=== PATIENT | male | born 1970 | race Caucasian/White ===

== ENCOUNTER 2016-09-06 00:46 | Emergency (ER) | payer BC, OTHER ==
[2016-09-06 02:55] LABS: ANION GAP 10 MEQ/L (8-16); BLOOD UREA NITROGEN 12 MG/DL (7-18); CALCIUM LEVEL 9.4 MG/DL (8.5-10.1); CARBON DIOXIDE LEVEL 28 MEQ/L (21-32); CHLORIDE LEVEL 104 MEQ/L (98-107); CREATININE FOR GFR 1.14 MG/DL (0.70-1.30); GLOMERULAR FILTRATION RATE > 60.0 (>60); GLUCOSE, FASTING 138 MG/DL (70-105); POTASSIUM SERUM 3.2 MEQ/L (3.5-5.1); SODIUM LEVEL 142 MEQ/L (136-145)
[2016-09-06] MEDS ORDERED: POTASSIUM CHLORIDE 10 MEQ SR TABLET As Ordered ONE (03:17)
--- NOTE | 2016-09-06 05:35 | EDDOCDS ---
Nurse's Notes [facility] Name: lOayinka Falcon Age: 45 yrs Sex: Male : 1970 Arrival Date: 09/06/2016 Time: 00:46 Bed 1 Private MD: Diagnosis: Essential (primary) hypertension;Hypokalemia Presentation: 09/06 00:58 Presenting complaint: Patient states: Pt reports he checked his blood pressure at home lf1 at it was 200/100 and he was diaphoretic. Pt denies chest pain. States he has had a similar episode in the past due to low potassium. Adult Sepsis Screening: The patient does not have new or worsening altered mentation. Patient's respiratory rate is less than 22. Systolic blood pressure is greater than 100. Patient has a qSOFA score of 0- Negative Sepsis Screen. Suicide/Homicide risk assessment- the patient denies having any suicidal and/or homicidal ideations and does not present with any other emotional, behavioral or mental health complaints. 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 Transition of care: patient was not received from another setting of care. 00:58 Acuity: CARROLL Level 3 lf1 00:58 Method Of Arrival: Walkin/Carried/Asstd lf1 Triage Assessment: 01:04 General: Appears comfortable, Behavior is cooperative. Pain: Denies pain. HIV screening lf1 NA for this visit Offered previously. Neurological: Level of Consciousness is awake, alert, Oriented to person, place, time. EENT: No deficits noted. Cardiovascular: Chest pain is denied. Respiratory: Respiratory effort is even, unlabored. GI: Abdomen is obese, Denies nausea, vomiting. : No deficits noted. Derm: No deficits noted. Injury Description: No known injury. Historical: - Allergies: SHELLFISH; - Home Meds: 1. allopurinol 100 mg Oral tab 2 tabs once daily 2. amlodipine 10 mg oral tab 3. aspirin 81 mg Oral TbEC 4. atorvastatin 20 mg oral tab 0.5 tab 5. Bystolic 10 mg oral tab 1 tab once daily 6. levocetirizine 5 mg oral tab 1 tab once daily 7. triamterene-hydrochlorothiazid 37.5-25 mg Oral tab 1 tab once daily 8. Vitamin D Oral 1000 unit daily 9. levothyroxine 50 mcg Oral cap 1 cap once daily 10. multivitamin Oral cap - PMHx: Gout; Hiatal Hernia; High Cholesterol; Hypertension; Hypothyroidism; - PSHx: Adenoidectomy; Knee surgery- Left; - Social history: Smoking status: Patient states was never smoker of tobacco. No barriers to communication noted, The patient speaks fluent Azerbaijani, Speaks appropriately for age, Preferred Language: Azerbaijani. - Family history: No immediate family members are acutely ill. - : The pt / caregiver states he / she is not on anticoagulants. Home medication list is obtained from the patient. - Exposure Risk Screening:: None identified. Screenin:06 Screening information is obtained from the patient. Fall risk: No risks identified. lf1 Assistance ADL's: requires no assistance with activities of daily living. Abuse/DV Screen: The patient / caregiver reports he/she is: not in a situation that causes fear, pain or injury. Nutritional screening: No deficits noted. Advance Directives: Currently, there is no health care proxy. There is no active DNR order. There is no living will. home support is adequate. Assessment: 01:41 General: Appears in no apparent distress, comfortable, Behavior is appropriate for age, nn1 cooperative, Patient reports he is anxious. Patient states he first took pulse at 2300 after suddenly becoming diaphoretic, reports his normal pulse is usually in the 60s. Patient reports pulse was in the 90s and BP was 200/100. Patient reporting dry mouth.. Pain: Denies pain. Neurological: Level of Consciousness is awake, alert, Oriented to person, place, time. Cardiovascular: Capillary refill < 3 seconds Heart tones S1 S2 present Rhythm is sinus rhythm No ectopy. Chest pain is denied. Respiratory: Airway is patent Respiratory effort is even, unlabored, Respiratory pattern is regular, symmetrical, Breath sounds are clear bilaterally. Denies shortness of breath. GI: Abdomen is non- distended Bowel sounds present X 4 quads. Derm: Skin is pink, warm & dry. Not diaphoretic at this time. 02:25 General: Appears in no apparent distress, Behavior is anxious, Patient anxious as to nn1 why blood pressure and pulse increased, therefore cardiac enzymes taken. . 03:23 General: Appears in no apparent distress, comfortable, Behavior is anxious, appropriate nn1 for age, cooperative. Pain: Denies pain. Neurological: Level of Consciousness is awake, alert, Oriented to person, place, time. Respiratory: Airway is patent Respiratory effort is even, unlabored, Respiratory pattern is regular, symmetrical. Derm: Skin is pink, warm & dry. 05:10 Reassessment: Patient appears in no apparent distress at this time. No change in nn1 condition at this time, patient awaiting disposition.. 05:32 General: Appears in no apparent distress, comfortable, Behavior is appropriate for age, nn1 cooperative. Pain: Denies pain. Neurological: Level of Consciousness is awake, alert, Oriented to person, place, time. Respiratory: Airway is patent Respiratory effort is even, unlabored, Respiratory pattern is regular, symmetrical. Derm: Skin is pink, warm & dry. Vital Signs: 00:57 BP 198 / 88 (man/); Pulse 103; Resp 20; Temp 99.1(TE); Pulse Ox 97% on R/A; Weight dionne 158.3 kg; Height 6 ft. 0 in. (182.88 cm) (R); Pain 0/10; 02:16 BP 158 / 86 (man/); Pulse 94; Resp 20; Temp 98.0(O); Pulse Ox 98% on R/A; dionne 03:15 BP 141 / 88 (auto/); nn1 03:15 Pulse 73 MON; Pulse Ox 95% ; nn1 03:15 Resp 18; nn1 05:31 BP 159 / 85; Pulse 70; Resp 18; Temp 98.1(TE); Pulse Ox 96% on R/A; Pain 0/10; nn1 00:57 Body Mass Index 47.33 (158.30 kg, 182.88 cm) dionne Vitals: 01:04 Log In Time: September 06, 2016 at 00:48. lf1 ED Course: 00:47 Patient visited by Temi Pablo, Alexander. hs2 00:47 Patient moved to Waiting hs2 00:50 Patient moved to Triage 3 lf1 00:58 Patient visited by Riya Pedersen PCA. dionne 01:00 Triage Initiated lf1 01:05 EKG done. (by ED staff). Reviewed by Ramiro Levine DO. dionne 01:06 Patient moved to 1 dionne 01:12 Patient visited by Riya Pedersen PCA. dionne 01:12 Pt greeted and oriented to ED. Patient advised of names of staff involved in care, dionne location of call brand, wait times and NPO status. Accompanied by Significant Other, Patient has correct armband on for positive identification. Placed in gown. Bed in low position. Call light in reach. Side rails up X2. event sales representative on. Pulse ox on. NIBP on. 01:35 Ramiro Levine DO is Attending Physician. cs11 01:35 Patient visited by Ramiro Levine DO. cs11 02:05 Yonas Traore MD is Referral Physician. cs11 02:16 Patient visited by Riya Pedersen PCA. dionne 02:26 Cardiac Marker Panel Sent. nn1 02:26 MED Profile Sent. nn1 03:12 [facility] Payment Agreement was scanned into [employer] and attached to record. hs2 03:23 Patient visited by Mike Patel RN. nn1 04:26 Patient visited by Mike Patel RN. nn1 05:10 Patient visited by Mike Patel RN. nn1 05:33 The patient / caregiver is instructed regarding the plan of care and ED course. nn1 05:33 No IV's were initiated during this patient's visit. No procedures done that require nn1 assistance. Administered Medications: 03:23 Drug: Potassium Chloride 20 mEq [potassium chloride ER 10 mEq tablet,extended release nn1 (2 tabs)] Route: PO; Order Results: Lab Order: MED Profile; SPEC'M 09/06/16 02:24 Test: GLUCOSE, FASTING; Value: 138; Range: 70-105; Abnormal: Above high normal; Units: MG/DL; Status: F Test: BLOOD UREA NITROGEN; Value: 12; Range: 7-18; Units: MG/DL; Status: F Test: CREATININE FOR GFR; Value: 1.14; Range: 0.70-1.30; Units: MG/DL; Status: F Test: GLOMERULAR FILTRATION RATE; Value: > 60.0; Range: >60; Status: F Test: SODIUM LEVEL; Value: 142; Range: 136-145; Units: MEQ/L; Status: F Test: POTASSIUM SERUM; Value: 3.2; Range: 3.5-5.1; Abnormal: Below low normal; Units: MEQ/L; Status: F Test: CHLORIDE LEVEL; Value: 104; Range: 98-107; Units: MEQ/L; Status: F Test: CARBON DIOXIDE LEVEL; Value: 28; Range: 21-32; Units: MEQ/L; Status: F Test: ANION GAP; Value: 10; Range: 8-16; Units: MEQ/L; Status: F Test: CALCIUM LEVEL; Value: 9.4; Range: 8.5-10.1; Units: MG/DL; Status: F Test Note: ; Units are mL/min/1.73 m2 Chronic Kidney Disease Staging per NKF: Stage I & II GFR >=60 Normal to Mildly Decreased Stage III GFR 30-59 Moderately Decreased Stage IV GFR 15-29 Severely Decreased Stage V GFR <15 Very Little GFR Left ESRD GFR <15 on CALIBRATION SPECIALIST Lab Order: Cardiac Marker Panel; SPEC'M 09/06/16 02:24 Test: CPK CREATINE PHOSPHOKINASE; Value: 247; Range: 39-308; Units: U/L; Status: F Test: CK-MB VALUE MASS; Value: 1.9; Range: 0.0-3.6; Units: NG/ML; Status: F Test: MB/CK RELATIVE INDEX; Value: 0.76; Range: < OR =4; Status: F Test: TROPONIN I; Value: < 0.02; Range: < 0.10; Units: NG/ML; Status: F Test Note: ; DIAGNOSIS CRITERIA MMB ng/ml Relative Index (RI) NON-AMI < or = 5 N/A LESLIE ZONE > 5 < or = 4 AMI > 5 > 4 Outcome: 02:06 Discharge ordered by Provider. cs11 05:22 Discharge ordered by Provider. 11 05:32 Discharge Assessment: Patient awake, alert and oriented x 3. No cognitive and/or nn1 functional deficits noted. Patient verbalized understanding of disposition instructions. patient administered narcotics - no. The following High Risk Discharge criteria are identified: None. Discharged to home ambulatory, with significant other. Condition: stable. No special radiology studies were completed. Property :Personal belongings accompany Pt. 05:33 Patient left the ED. nn1 Signatures: Bing Singh,RN RN lf1 Riya Pedersen, CRISTIANE CABLE TELEVISION TECHNICIAN Ramiro Guillauem DO DO cs11 Mike PatelRN RN nn1 Temi Pablo, Reg Reg hs2 MTDD
--- NOTE | 2016-09-06 05:35 | EDDOCDS ---
Physician Documentation [facility] Name: Olaiynka Falcon Age: 45 yrs Sex: Male : 1970 Arrival Date: 09/06/2016 Time: 00:46 Bed 1 Private MD: Disposition: 09/06/16 05:22 Discharged to Home/Self Care. Impression: Essential (primary) hypertension, Hypokalemia. - Condition is Stable. - Medication Reconciliation, Local Pharmacy Hours form. - Follow up: Private Physician; When: Call to arrange an appointment; Reason: Recheck today's complaints. - Problem is an ongoing problem. - Symptoms have improved. Historical: - Allergies: SHELLFISH; - Home Meds: 1. allopurinol 100 mg Oral tab 2 tabs once daily 2. amlodipine 10 mg oral tab 3. aspirin 81 mg Oral TbEC 4. atorvastatin 20 mg oral tab 0.5 tab 5. Bystolic 10 mg oral tab 1 tab once daily 6. levocetirizine 5 mg oral tab 1 tab once daily 7. triamterene-hydrochlorothiazid 37.5-25 mg Oral tab 1 tab once daily 8. Vitamin D Oral 1000 unit daily 9. levothyroxine 50 mcg Oral cap 1 cap once daily 10. multivitamin Oral cap - PMHx: Gout; Hiatal Hernia; High Cholesterol; Hypertension; Hypothyroidism; - PSHx: Adenoidectomy; Knee surgery- Left; - Social history: Smoking status: Patient states was never smoker of tobacco. No barriers to communication noted, The patient speaks fluent Malaysian, Speaks appropriately for age, Preferred Language: Malaysian. - Family history: No immediate family members are acutely ill. - : The pt / caregiver states he / she is not on anticoagulants. Home medication list is obtained from the patient. - Exposure Risk Screening:: None identified. Vital Signs: 09/06 00:57 BP 198 / 88 (man/); Pulse 103; Resp 20; Temp 99.1(TE); Pulse Ox 97% on R/A; Weight dionne 158.3 kg / 348.99 lbs; Height 6 ft. 0 in. (182.88 cm) (R); Pain 0/10; 02:16 BP 158 / 86 (man/); Pulse 94; Resp 20; Temp 98.0(O); Pulse Ox 98% on R/A; dionne 03:15 BP 141 / 88 (auto/); nn1 03:15 Pulse 73 MON; Pulse Ox 95% ; nn1 03:15 Resp 18; nn1 05:31 BP 159 / 85; Pulse 70; Resp 18; Temp 98.1(TE); Pulse Ox 96% on R/A; Pain 0/10; nn1 00:57 Body Mass Index 47.33 (158.30 kg, 182.88 cm) dionne MDM: 01:02 ECG WITH READING ER PHYS+CARDIAG ordered. EDMS 02:18 MED Profile Ordered. EDMS 02:18 Cardiac Marker Panel Ordered. EDMS 02:27 Financial registration complete. pm4 03:11 MED Profile Reviewed. cs11 03:11 Cardiac Marker Panel Reviewed. cs11 03:11 Potassium Chloride Extended Release Tablet 20 mEq PO once ordered. cs11 03:12 [facility] Payment Agreement was scanned into [employer] and attached to record. hs2 Administered Medications: 03:23 Drug: Potassium Chloride 20 mEq [potassium chloride ER 10 mEq tablet,extended release nn1 (2 tabs)] Route: PO; Signatures: Dispatcher [employer] EDGA Bing Singh,RN RN lf1 Ramiro Levine, DO DO cs11 Mike PatelRN RN nn1 Temi Pablo, Reg Reg hs2 Kentrell Doan, Reg Reg pm4 The chart was reviewed and I authenticate all verbal orders and agree with the evaluation and treatment provided.Attachments: 03:12 [facility] Payment Agreement hs2 MTDD
--- NOTE | 2016-09-07 17:37 | ECGEPIP ---
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
--- NOTE | 2016-09-08 06:34 | EDDOCDS ---
Physician Documentation [facility] Name: Olayinka Falcon Age: 45 yrs Sex: Male : 1970 Arrival Date: 09/06/2016 Time: 00:46 Bed 1 Private MD: Disposition: 09/06/16 05:22 Discharged to Home/Self Care. Impression: Essential (primary) hypertension, Hypokalemia. - Condition is Stable. - Medication Reconciliation, Local Pharmacy Hours form. - Follow up: Private Physician; When: Call to arrange an appointment; Reason: Recheck today's complaints. - Problem is an ongoing problem. - Symptoms have improved. Historical: - Allergies: SHELLFISH; - Home Meds: 1. allopurinol 100 mg Oral tab 2 tabs once daily 2. amlodipine 10 mg oral tab 3. aspirin 81 mg Oral TbEC 4. atorvastatin 20 mg oral tab 0.5 tab 5. Bystolic 10 mg oral tab 1 tab once daily 6. levocetirizine 5 mg oral tab 1 tab once daily 7. triamterene-hydrochlorothiazid 37.5-25 mg Oral tab 1 tab once daily 8. Vitamin D Oral 1000 unit daily 9. levothyroxine 50 mcg Oral cap 1 cap once daily 10. multivitamin Oral cap - PMHx: Gout; Hiatal Hernia; High Cholesterol; Hypertension; Hypothyroidism; - PSHx: Adenoidectomy; Knee surgery- Left; - Social history: Smoking status: Patient states was never smoker of tobacco. No barriers to communication noted, The patient speaks fluent Montserratian, Speaks appropriately for age, Preferred Language: Montserratian. - Family history: No immediate family members are acutely ill. - : The pt / caregiver states he / she is not on anticoagulants. Home medication list is obtained from the patient. - Exposure Risk Screening:: None identified. Vital Signs: 09/06 00:57 BP 198 / 88 (man/); Pulse 103; Resp 20; Temp 99.1(TE); Pulse Ox 97% on R/A; Weight dionne 158.3 kg / 348.99 lbs; Height 6 ft. 0 in. (182.88 cm) (R); Pain 0/10; 02:16 BP 158 / 86 (man/); Pulse 94; Resp 20; Temp 98.0(O); Pulse Ox 98% on R/A; dionne 03:15 BP 141 / 88 (auto/); nn1 03:15 Pulse 73 MON; Pulse Ox 95% ; nn1 03:15 Resp 18; nn1 05:31 BP 159 / 85; Pulse 70; Resp 18; Temp 98.1(TE); Pulse Ox 96% on R/A; Pain 0/10; nn1 00:57 Body Mass Index 47.33 (158.30 kg, 182.88 cm) dionne MDM: 01:02 ECG WITH READING ER PHYS+CARDIAG ordered. EDMS 02:18 MED Profile Ordered. EDMS 02:18 Cardiac Marker Panel Ordered. EDMS 02:27 Financial registration complete. pm4 03:11 MED Profile Reviewed. cs11 03:11 Cardiac Marker Panel Reviewed. cs11 03:11 Potassium Chloride Extended Release Tablet 20 mEq PO once ordered. cs11 03:12 [facility] Payment Agreement was scanned into [employer] and attached to record. 2 09/07 12:57 T-Sheet-- Draft Copy was scanned into [employer] and attached to record. gb 12:58 ECG/EKG was scanned into [employer] and attached to record. gb Administered Medications: 09/06 03:23 Drug: Potassium Chloride 20 mEq [potassium chloride ER 10 mEq tablet,extended release nn1 (2 tabs)] Route: PO; Signatures: Dispatcher [employer] EDKS Luciana Arshad, Reg Reg gb Bing Singh,RN RN lf1 Ramiro Levine, DO cs11 Mike PatelRN RN nn1 Temi Pablo, Reg Reg hs2 Kentrell Doan, Reg Reg pm4 The chart was reviewed and I authenticate all verbal orders and agree with the evaluation and treatment provided.Attachments: 03:12 [facility] Payment Agreement hs2 09/07 12:57 T-Sheet-- Draft Copy gb 12:58 ECG/EKG gb Chart Complete MTDD
--- NOTE | 2016-09-08 06:35 | EDDOCDS ---
Physician Documentation [facility] Name: Olayinka Falcon Age: 45 yrs Sex: Male : 1970 Arrival Date: 09/06/2016 Time: 00:46 Bed 1 Private MD: Disposition: 09/06/16 05:22 Discharged to Home/Self Care. Impression: Essential (primary) hypertension, Hypokalemia. - Condition is Stable. - Medication Reconciliation, Local Pharmacy Hours form. - Follow up: Private Physician; When: Call to arrange an appointment; Reason: Recheck today's complaints. - Problem is an ongoing problem. - Symptoms have improved. Historical: - Allergies: SHELLFISH; - Home Meds: 1. allopurinol 100 mg Oral tab 2 tabs once daily 2. amlodipine 10 mg oral tab 3. aspirin 81 mg Oral TbEC 4. atorvastatin 20 mg oral tab 0.5 tab 5. Bystolic 10 mg oral tab 1 tab once daily 6. levocetirizine 5 mg oral tab 1 tab once daily 7. triamterene-hydrochlorothiazid 37.5-25 mg Oral tab 1 tab once daily 8. Vitamin D Oral 1000 unit daily 9. levothyroxine 50 mcg Oral cap 1 cap once daily 10. multivitamin Oral cap - PMHx: Gout; Hiatal Hernia; High Cholesterol; Hypertension; Hypothyroidism; - PSHx: Adenoidectomy; Knee surgery- Left; - Social history: Smoking status: Patient states was never smoker of tobacco. No barriers to communication noted, The patient speaks fluent Barbadian, Speaks appropriately for age, Preferred Language: Barbadian. - Family history: No immediate family members are acutely ill. - : The pt / caregiver states he / she is not on anticoagulants. Home medication list is obtained from the patient. - Exposure Risk Screening:: None identified. Vital Signs: 09/06 00:57 BP 198 / 88 (man/); Pulse 103; Resp 20; Temp 99.1(TE); Pulse Ox 97% on R/A; Weight dionne 158.3 kg / 348.99 lbs; Height 6 ft. 0 in. (182.88 cm) (R); Pain 0/10; 02:16 BP 158 / 86 (man/); Pulse 94; Resp 20; Temp 98.0(O); Pulse Ox 98% on R/A; dionne 03:15 BP 141 / 88 (auto/); nn1 03:15 Pulse 73 MON; Pulse Ox 95% ; nn1 03:15 Resp 18; nn1 05:31 BP 159 / 85; Pulse 70; Resp 18; Temp 98.1(TE); Pulse Ox 96% on R/A; Pain 0/10; nn1 00:57 Body Mass Index 47.33 (158.30 kg, 182.88 cm) dionne MDM: 01:02 ECG WITH READING ER PHYS+CARDIAG ordered. EDMS 02:18 MED Profile Ordered. EDMS 02:18 Cardiac Marker Panel Ordered. EDMS 02:27 Financial registration complete. pm4 03:11 MED Profile Reviewed. cs11 03:11 Cardiac Marker Panel Reviewed. cs11 03:11 Potassium Chloride Extended Release Tablet 20 mEq PO once ordered. cs11 03:12 [facility] Payment Agreement was scanned into [employer] and attached to record. 2 09/07 12:57 T-Sheet-- Draft Copy was scanned into [employer] and attached to record. gb 12:58 ECG/EKG was scanned into [employer] and attached to record. gb Administered Medications: 09/06 03:23 Drug: Potassium Chloride 20 mEq [potassium chloride ER 10 mEq tablet,extended release nn1 (2 tabs)] Route: PO; Signatures: Dispatcher [employer] EDHI Luciana Arshad, Reg Reg gb Bing Singh,RN RN lf1 Ramiro Levine, DO cs11 Mike PatelRN RN nn1 Temi Pablo, Reg Reg hs2 Kentrell Doan, Reg Reg pm4 The chart was reviewed and I authenticate all verbal orders and agree with the evaluation and treatment provided.Attachments: 03:12 [facility] Payment Agreement hs2 09/07 12:57 T-Sheet-- Draft Copy gb 12:58 ECG/EKG gb Chart Complete MTDD
--- NOTE | 2016-09-08 06:35 | EDDOCDS ---
Nurse's Notes [facility] Name: Olayinka Falcon Age: 45 yrs Sex: Male : 1970 Arrival Date: 09/06/2016 Time: 00:46 Bed 1 Private MD: Diagnosis: Essential (primary) hypertension;Hypokalemia Presentation: 09/06 00:58 Presenting complaint: Patient states: Pt reports he checked his blood pressure at home lf1 at it was 200/100 and he was diaphoretic. Pt denies chest pain. States he has had a similar episode in the past due to low potassium. Adult Sepsis Screening: The patient does not have new or worsening altered mentation. Patient's respiratory rate is less than 22. Systolic blood pressure is greater than 100. Patient has a qSOFA score of 0- Negative Sepsis Screen. Suicide/Homicide risk assessment- the patient denies having any suicidal and/or homicidal ideations and does not present with any other emotional, behavioral or mental health complaints. 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 Transition of care: patient was not received from another setting of care. 00:58 Acuity: CARROLL Level 3 lf1 00:58 Method Of Arrival: Walkin/Carried/Asstd lf1 Triage Assessment: 01:04 General: Appears comfortable, Behavior is cooperative. Pain: Denies pain. HIV screening lf1 NA for this visit Offered previously. Neurological: Level of Consciousness is awake, alert, Oriented to person, place, time. EENT: No deficits noted. Cardiovascular: Chest pain is denied. Respiratory: Respiratory effort is even, unlabored. GI: Abdomen is obese, Denies nausea, vomiting. : No deficits noted. Derm: No deficits noted. Injury Description: No known injury. Historical: - Allergies: SHELLFISH; - Home Meds: 1. allopurinol 100 mg Oral tab 2 tabs once daily 2. amlodipine 10 mg oral tab 3. aspirin 81 mg Oral TbEC 4. atorvastatin 20 mg oral tab 0.5 tab 5. Bystolic 10 mg oral tab 1 tab once daily 6. levocetirizine 5 mg oral tab 1 tab once daily 7. triamterene-hydrochlorothiazid 37.5-25 mg Oral tab 1 tab once daily 8. Vitamin D Oral 1000 unit daily 9. levothyroxine 50 mcg Oral cap 1 cap once daily 10. multivitamin Oral cap - PMHx: Gout; Hiatal Hernia; High Cholesterol; Hypertension; Hypothyroidism; - PSHx: Adenoidectomy; Knee surgery- Left; - Social history: Smoking status: Patient states was never smoker of tobacco. No barriers to communication noted, The patient speaks fluent Guyanese, Speaks appropriately for age, Preferred Language: Guyanese. - Family history: No immediate family members are acutely ill. - : The pt / caregiver states he / she is not on anticoagulants. Home medication list is obtained from the patient. - Exposure Risk Screening:: None identified. Screenin:06 Screening information is obtained from the patient. Fall risk: No risks identified. lf1 Assistance ADL's: requires no assistance with activities of daily living. Abuse/DV Screen: The patient / caregiver reports he/she is: not in a situation that causes fear, pain or injury. Nutritional screening: No deficits noted. Advance Directives: Currently, there is no health care proxy. There is no active DNR order. There is no living will. home support is adequate. Assessment: 01:41 General: Appears in no apparent distress, comfortable, Behavior is appropriate for age, nn1 cooperative, Patient reports he is anxious. Patient states he first took pulse at 2300 after suddenly becoming diaphoretic, reports his normal pulse is usually in the 60s. Patient reports pulse was in the 90s and BP was 200/100. Patient reporting dry mouth.. Pain: Denies pain. Neurological: Level of Consciousness is awake, alert, Oriented to person, place, time. Cardiovascular: Capillary refill < 3 seconds Heart tones S1 S2 present Rhythm is sinus rhythm No ectopy. Chest pain is denied. Respiratory: Airway is patent Respiratory effort is even, unlabored, Respiratory pattern is regular, symmetrical, Breath sounds are clear bilaterally. Denies shortness of breath. GI: Abdomen is non- distended Bowel sounds present X 4 quads. Derm: Skin is pink, warm & dry. Not diaphoretic at this time. 02:25 General: Appears in no apparent distress, Behavior is anxious, Patient anxious as to nn1 why blood pressure and pulse increased, therefore cardiac enzymes taken. . 03:23 General: Appears in no apparent distress, comfortable, Behavior is anxious, appropriate nn1 for age, cooperative. Pain: Denies pain. Neurological: Level of Consciousness is awake, alert, Oriented to person, place, time. Respiratory: Airway is patent Respiratory effort is even, unlabored, Respiratory pattern is regular, symmetrical. Derm: Skin is pink, warm & dry. 05:10 Reassessment: Patient appears in no apparent distress at this time. No change in nn1 condition at this time, patient awaiting disposition.. 05:32 General: Appears in no apparent distress, comfortable, Behavior is appropriate for age, nn1 cooperative. Pain: Denies pain. Neurological: Level of Consciousness is awake, alert, Oriented to person, place, time. Respiratory: Airway is patent Respiratory effort is even, unlabored, Respiratory pattern is regular, symmetrical. Derm: Skin is pink, warm & dry. Vital Signs: 00:57 BP 198 / 88 (man/); Pulse 103; Resp 20; Temp 99.1(TE); Pulse Ox 97% on R/A; Weight dionne 158.3 kg; Height 6 ft. 0 in. (182.88 cm) (R); Pain 0/10; 02:16 BP 158 / 86 (man/); Pulse 94; Resp 20; Temp 98.0(O); Pulse Ox 98% on R/A; dionne 03:15 BP 141 / 88 (auto/); nn1 03:15 Pulse 73 MON; Pulse Ox 95% ; nn1 03:15 Resp 18; nn1 05:31 BP 159 / 85; Pulse 70; Resp 18; Temp 98.1(TE); Pulse Ox 96% on R/A; Pain 0/10; nn1 00:57 Body Mass Index 47.33 (158.30 kg, 182.88 cm) dionne Vitals: 01:04 Log In Time: September 06, 2016 at 00:48. lf1 ED Course: 00:47 Patient visited by Temi Pablo, Alexander. hs2 00:47 Patient moved to Waiting hs2 00:50 Patient moved to Triage 3 lf1 00:58 Patient visited by Riya ePdersen PCA. dionne 01:00 Triage Initiated lf1 01:05 EKG done. (by ED staff). Reviewed by Ramiro Michel DO. dionne 01:06 Patient moved to 1 dionne 01:12 Patient visited by Riya Pedersen PCA. dionne 01:12 Pt greeted and oriented to ED. Patient advised of names of staff involved in care, dionne location of call brand, wait times and NPO status. Accompanied by Significant Other, Patient has correct armband on for positive identification. Placed in gown. Bed in low position. Call light in reach. Side rails up X2. graduate assistant on. Pulse ox on. NIBP on. 01:35 Ramiro Michel DO is Attending Physician. cs11 01:35 Patient visited by Ramiro Michel DO. cs11 02:05 Yonas Traore MD is Referral Physician. cs11 02:16 Patient visited by Riya Pedersen PCA. dionne 02:26 Cardiac Marker Panel Sent. nn1 02:26 MED Profile Sent. nn1 03:12 [facility] Payment Agreement was scanned into [email or web address] and attached to record. hs2 03:23 Patient visited by Mike Patel RN. nn1 04:26 Patient visited by Mike Patel,CURTIS. nn1 05:10 Patient visited by Mike Patel,CURTIS. nn1 05:33 The patient / caregiver is instructed regarding the plan of care and ED course. nn1 05:33 No IV's were initiated during this patient's visit. No procedures done that require nn1 assistance. 16:53 Patient visited by Emilia Lama. mc7 09/07 12:57 T-Sheet-- Draft Copy was scanned into [email or web address] and attached to record. gb 12:58 ECG/EKG was scanned into [email or web address] and attached to record. gb 18:15 EKG-ADULT Returned. EDMS Administered Medications: 09/06 03:23 Drug: Potassium Chloride 20 mEq [potassium chloride ER 10 mEq tablet,extended release nn1 (2 tabs)] Route: PO; Order Results: Lab Order: MED Profile; SPEC'M 09/06/16 02:24 Test: GLUCOSE, FASTING; Value: 138; Range: 70-105; Abnormal: Above high normal; Units: MG/DL; Status: F Test: BLOOD UREA NITROGEN; Value: 12; Range: 7-18; Units: MG/DL; Status: F Test: CREATININE FOR GFR; Value: 1.14; Range: 0.70-1.30; Units: MG/DL; Status: F Test: GLOMERULAR FILTRATION RATE; Value: > 60.0; Range: >60; Status: F Test: SODIUM LEVEL; Value: 142; Range: 136-145; Units: MEQ/L; Status: F Test: POTASSIUM SERUM; Value: 3.2; Range: 3.5-5.1; Abnormal: Below low normal; Units: MEQ/L; Status: F Test: CHLORIDE LEVEL; Value: 104; Range: 98-107; Units: MEQ/L; Status: F Test: CARBON DIOXIDE LEVEL; Value: 28; Range: 21-32; Units: MEQ/L; Status: F Test: ANION GAP; Value: 10; Range: 8-16; Units: MEQ/L; Status: F Test: CALCIUM LEVEL; Value: 9.4; Range: 8.5-10.1; Units: MG/DL; Status: F Test Note: ; Units are mL/min/1.73 m2 Chronic Kidney Disease Staging per NKF: Stage I & II GFR >=60 Normal to Mildly Decreased Stage III GFR 30-59 Moderately Decreased Stage IV GFR 15-29 Severely Decreased Stage V GFR <15 Very Little GFR Left ESRD GFR <15 on REEL SLITTER Lab Order: Cardiac Marker Panel; [facility]' 09/06/16 02:24 Test: CPK CREATINE PHOSPHOKINASE; Value: 247; Range: 39-308; Units: U/L; Status: F Test: CK-MB VALUE MASS; Value: 1.9; Range: 0.0-3.6; Units: NG/ML; Status: F Test: MB/CK RELATIVE INDEX; Value: 0.76; Range: < OR =4; Status: F Test: TROPONIN I; Value: < 0.02; Range: < 0.10; Units: NG/ML; Status: F Test Note: ; DIAGNOSIS CRITERIA MMB ng/ml Relative Index (RI) NON-AMI < or = 5 N/A LESLIE ZONE > 5 < or = 4 AMI > 5 > 4 Radiology Order: EKG-ADULT Test: EKG-ADULT REASON FOR EXAMINATION: elevated BP and diaphoresis; Stationary ECG Study; [facility] - ED; ; Test Date: 2016-09-06; Pat Name: OLAYINKA FALCON Department:; Room: -; Gender: M 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 cs11 05:22 Discharge ordered by Provider. cs11 05:32 Discharge Assessment: Patient awake, alert and oriented x 3. No cognitive and/or nn1 functional deficits noted. Patient verbalized understanding of disposition instructions. patient administered narcotics - no. The following High Risk Discharge criteria are identified: None. Discharged to home ambulatory, with significant other. Condition: stable. No special radiology studies were completed. Property :Personal belongings accompany Pt. 05:33 Patient left the ED. nn1 Signatures: Dispatcher [employer] EDMS Luciana Arshad, Reg Reg gb Bing Singh,RN RN 1 Emilia Lama 7 Riya Pedersen, NAME PLATE STAMPER NAME PLATE STAMPER Ramiro Guillaume, DO DO cs11 Mike Patel RN RN nn1 Temi Pablo, Reg Reg hs2 Chart Complete MTDD
== END 2016-09-06 05:33 | disposition home or self-care (01) ==
LOC: M ED 00:46
DX: I10 Essential (primary) hypertension (principal); F41.9 Anxiety disorder, unspecified; M10.9 Gout, unspecified; K44.9 Diaphragmatic hernia without obstruction or gangrene; E78.00 Pure hypercholesterolemia, unspecified; E03.9 Hypothyroidism, unspecified; Z79.82 Long term (current) use of aspirin; Z79.899 Other long term (current) drug therapy; Z91.013 Allergy to seafood

== ENCOUNTER → 2016-09-26 | Outpatient (CLI) | payer BC, OTHER ==
[2016-09-26 20:30] LABS: ANION GAP 10 MEQ/L (8-16); BLOOD UREA NITROGEN 14 MG/DL (7-18); CALCIUM LEVEL 9.6 MG/DL (8.5-10.1); CARBON DIOXIDE LEVEL 29 MEQ/L (21-32); CHLORIDE LEVEL 104 MEQ/L (98-107); CREATININE FOR GFR 1.16 MG/DL (0.70-1.30); GLOMERULAR FILTRATION RATE > 60.0 (>60); GLUCOSE, FASTING 118 MG/DL (70-105); POTASSIUM SERUM 3.7 MEQ/L (3.5-5.1); SODIUM LEVEL 143 MEQ/L (136-145)
== END ==
LOC: M ADAMS 15:43
PROVIDERS: ATTEND Physician Assistant
DX: E87.6 Hypokalemia (principal)

== ENCOUNTER 2017-06-22 13:47 | Emergency (ER) | payer OTHER, BC ==
[~2017-06-22] VITALS: Ht 182.9 cm; Wt 157.7 kg
[2017-06-22 13:47] VITALS: BP 157/80
[2017-06-22] MEDS ORDERED: BYST10TA2 (13:54)
[2017-06-22] MEDS ORDERED: MULT1CHW39 PO (13:54)
[2017-06-22] MEDS ORDERED: ASPI81TA85 PO (13:54)
[2017-06-22] MEDS ORDERED: CITA20TA4 (13:54)
[2017-06-22] MEDS ORDERED: ATOR1TAB21 (13:54)
[2017-06-22] MEDS ORDERED: AMLO10TA2 (13:54)
[2017-06-22] MEDS ORDERED: TRIAMT/HCTZ (13:54)
[2017-06-22] MEDS ORDERED: ALLO100T PO (13:54)
[2017-06-22] MEDS ORDERED: FAMO1TAB11 (13:54)
[2017-06-22] MEDS ORDERED: POTA8CAP4 (13:54)
[2017-06-22] MEDS ORDERED: ZYRT10CA PO (13:54)
[2017-06-22] MEDS ORDERED: LEVO50TA5 (13:54)
--- NOTE | 2017-06-22 14:45 | REP ---
Clinical: Trauma . Technique: AP, lateral, bilateral oblique views of the right elbow. Findings: No acute fracture or dislocation is appreciated. Joint spaces and surrounding soft tissues appear normal. Lateral view demonstrates normal positioning to the anterior and posterior fat pads without evidence for effusion/hemarthrosis. No subcutaneous emphysema or foreign body identified. Impression: Normal right elbow radiographs. Signed by Sebastian Alcanatra MD 06/22/2017 02:36 P
== END 2017-06-22 14:56 | disposition home or self-care (01) ==
LOC: M ED 13:47
DX: S50.01XA Contusion of right elbow, initial encounter (principal); W01.10XA Fall on same level from slipping, tripping and stumbling with subsequent striking against unspecified object, initial encounter; Y92.9 Unspecified place or not applicable; Y93.9 Activity, unspecified; Y99.0 Civilian activity done for income or pay; Z79.82 Long term (current) use of aspirin; Z79.899 Other long term (current) drug therapy; Z91.013 Allergy to seafood

== ENCOUNTER 2017-11-03 14:48 | Emergency (ER) | payer OTHER, BC | END 2017-11-03 15:31 | disposition home or self-care (01) | LOC: M ED 14:48 | DX: S97.82XA Crushing injury of left foot, initial encounter (principal); X58.XXXA Exposure to other specified factors, initial encounter; Y92.59 Other trade areas as the place of occurrence of the external cause; Y99.0 Civilian activity done for income or pay; I10 Essential (primary) hypertension; K21.9 Gastro-esophageal reflux disease without esophagitis; E07.9 Disorder of thyroid, unspecified; Z91.013 Allergy to seafood; Z79.82 Long term (current) use of aspirin; Z79.899 Other long term (current) drug therapy; Z79.890 Hormone replacement therapy | CPT/HCPCS: 73660 ==

== ENCOUNTER → 2018-02-14 | Outpatient (CLI) | payer BC, OTHER | LOC: M ADAMS 16:30 | DX: S50.01XA Contusion of right elbow, initial encounter (principal); X58.XXXA Exposure to other specified factors, initial encounter; Y92.9 Unspecified place or not applicable | CPT/HCPCS: 73080 ==

== ENCOUNTER → 2018-12-27 | Outpatient (CLI) | payer BC, OTHER ==
[~2018-12-27] MED LIST: ALLO100T PO; AMLO10TA5; ASPI81TA85 PO; ATOR1TAB21; BYST10TA2; CITA20TA6; FAMO1TAB11; IBUP-1022 PO; LEVO50TA5; MULT200T7 PO; POTA8CAP4; TRIAMT/HCTZ; ZYRT10CA PO
[2018-12-27 08:46] LABS: ALBUMIN 3.6 GM/DL (3.2-5.2); ALT/SGPT 38 U/L (12-78); BILIRUBIN,DIRECT 0.1 MG/DL (0.0-0.2); BILIRUBIN,TOTAL 0.4 MG/DL (0.2-1.0); GAMMA GLUTAMYLTRANSPEPTIDASE 46 U/L (15-85); IRON (FE) 62 UG/DL (65-175); PERCENT SATURATION 19.6 % (19.7-50.0); TOTAL IRON BINDING CAPACITY 317 UG/DL (250-450); TOTAL PROTEIN 6.8 GM/DL (6.4-8.2)
--- NOTE | 2018-12-27 10:47 | REP ---
RIGHT UPPER QUADRANT ULTRASOUND: Real-time sonographic evaluation of the right upper quadrant performed. Gallbladder demonstrates no evidence of intraluminal sludge or calculi, wall thickening or pericholecystic fluid. There is no intrahepatic or extrahepatic biliary dilatation, common bile duct measuring 5 mm. Liver demonstrates heterogeneous increased echotexture diffusely suggesting diffuse fibrofatty infiltration. No gross liver or pancreatic mass is seen, evaluation is limited due to overlying bowel gas and patient body habitus. Right kidney demonstrates no hydronephrosis with normal size 12 cm in length. IMPRESSION: Diffuse fibrofatty infiltration of the liver without other significant finding. Electronically Signed by Sha Brody MD 12/27/2018 04:29 P
[2018-12-28 11:50] LABS: HEPATITIS B SURFACE ANTIBODY POSITIVE (POSITIVE)
[2018-12-28 12:01] LABS: HEPATITIS B SURFACE ANTIGEN NEGATIVE (NEGATIVE)
[2018-12-31 15:22] LABS: ANTI-MITOCHONDRIAL ANTIBODY <20.0 Units (0.0-20.0); HEPATITIS A IgG TOTAL Negative (Negative); HEPATITIS B CORE ANTIBODY IGG Negative (Negative); HEPATITIS C QUANTITATION HCV Not Detected IU/mL (.)
== END ==
LOC: M RAD 07:04
PROVIDERS: ATTEND Internal Medicine Gastroenterology
DX: R94.5 Abnormal results of liver function studies (principal); K76.0 Fatty (change of) liver, not elsewhere classified

== ENCOUNTER 2019-02-14 08:45 | Day surgery (SDC) | payer BC, OTHER ==
[~2019-02-14] VITALS: Ht 182.9 cm; Wt 160.9 kg
[2019-02-14] MEDS: NS 1,000 ML IV ONE (07:00)
[~2019-02-14 08:45] MED LIST changes: +ACET-897 PO; -AMLO10TA5; +AMLO10TA5 PO; -ATOR1TAB21; +ATOR1TAB21 PO; -BYST10TA2; +BYST10TA2 PO; -CITA20TA6; +CITA20TA6 PO; +EPIP0.3I2 IM; -FAMO1TAB11; +FAMO1TAB11 PO; -LEVO50TA5; +LEVO50TA5 PO; +LEVOTAB10 PO; +POTA8CAP10 PO; -POTA8CAP4; +TRIA37.53 PO
[2019-02-14] MEDS ORDERED: PROPOFOL 200 MG/20 ML VIAL As Ordered ONE ×2 (09:35→10:13)
[2019-02-14 10:38] VITALS: BP 164/87
--- NOTE | 2019-02-14 10:38 | ROOR ---
Patient Name: Olayinka Falcon Procedure Date: 02/14/2019 9:40 AM Date of : 1970 Age: 48 Room: [facility] Gender: Male Note Status: Finalized Procedure: Colonoscopy Indications: Screening for colorectal malignant neoplasm Providers: Duane Rodas MD Referring MD: BALBIR KAYE Requesting Provider: Medicines: Monitored Anesthesia Care Complications: No immediate complications. Procedure: Pre-Anesthesia Assessment: - Prior to the procedure, a History and Physical was performed, and patient medications and allergies were reviewed. The patient is competent. The risks and benefits of the procedure and the sedation options and risks were discussed with the patient. All questions were answered and informed consent was obtained. Patient identification and proposed procedure were verified by the physician, the nurse and the anesthesiologist in the procedure room. Mental Status Examination: alert and oriented. Airway Examination: normal oropharyngeal airway and neck mobility. Respiratory Examination: clear to auscultation. CV Examination: normal. Prophylactic Antibiotics: The patient does not require prophylactic antibiotics. Prior Anticoagulants: The patient has taken no previous anticoagulant or antiplatelet agents. ASA Grade Assessment: III - A patient with severe systemic disease. After reviewing the risks and benefits, the patient was deemed in satisfactory condition to undergo the procedure. The anesthesia plan was to use monitored anesthesia care (MAC). Immediately prior to administration of medications, the patient was re-assessed for adequacy to receive sedatives. The heart rate, respiratory rate, oxygen saturations, blood pressure, adequacy of pulmonary ventilation, and response to care were monitored throughout the procedure. The physical status of the patient was re-assessed after the procedure. The Colonoscope was introduced through the anus with the intention of advancing to the cecum. The scope was advanced to the ascending colon before the procedure was aborted. Medications were given. The colonoscopy was performed without difficulty. The patient tolerated the procedure well. The quality of the bowel preparation was poor. The ileocecal valve and the rectum were photographed. Scope insertion time was 5 minutes. Scope withdrawal time was 6 minutes. The total duration of the procedure was 12 minutes. Findings: The perianal and digital rectal examinations were normal. A 10 mm polyp was found in the descending colon. The polyp was sessile. The polyp was removed with a cold snare. Resection and retrieval were complete. Verification of patient identification for the specimen was done by the physician and nurse using the patient's name, date and medical record number. Estimated blood loss was minimal. Multiple small-mouthed diverticula were found in the sigmoid colon. There was no evidence of diverticular bleeding. External and internal hemorrhoids were found during retroflexion. The hemorrhoids were mild. A large amount of stool was found in the sigmoid colon, in the descending colon, in the ascending colon and in the cecum, precluding visualization. Lavage of the area was performed, resulting in incomplete clearance with continued poor visualization. Impression: - Preparation of the colon was poor. - One 10 mm polyp in the descending colon, removed with a cold snare. Resected and retrieved. - Moderate diverticulosis in the sigmoid colon. There was no evidence of diverticular bleeding. - External and internal hemorrhoids. - Stool in the sigmoid colon, in the descending colon, in the ascending colon and in the cecum. Recommendation: - Patient has a contact number available for emergencies. The signs and symptoms of potential delayed complications were discussed with the patient. Return to normal activities tomorrow. Written discharge instructions were provided to the patient. - High fiber diet. - Continue present medications. - Await pathology results. - Repeat colonoscopy at next available appointment (within 3 months) because the bowel preparation was poor. - Telephone GI clinic to schedule appointment 1 - 2 weeks. Please call GI clinic @ [phone] for apppointment date and time. - Return to primary care physician. Duane Rodas MD Duane Rodas MD 02/14/2019 10:37:21 AM Electronically signed by Duane Rodas MD Number of Addenda: 0 Note Initiated On: 02/14/2019 9:40 AM Estimated Blood Loss: Estimated blood loss was minimal.
== END 2019-02-14 11:05 | disposition home or self-care (01) ==
LOC: M OPP 08:45
PROVIDERS: ATTEND Internal Medicine Gastroenterology
DX: Z12.11 Encounter for screening for malignant neoplasm of colon (principal); K64.8 Other hemorrhoids; D12.4 Benign neoplasm of descending colon; K57.30 Diverticulosis of large intestine without perforation or abscess without bleeding; Z79.899 Other long term (current) drug therapy; Z91.013 Allergy to seafood

== ENCOUNTER → 2019-12-20 | Outpatient (CLI) | payer OTHER ==
[2019-12-20 09:36] LABS: BLOOD UREA NITROGEN 13 MG/DL (7-18); CALCIUM LEVEL 9.5 MG/DL (8.5-10.1); CARBON DIOXIDE LEVEL 30 MEQ/L (21-32); CHLORIDE LEVEL 105 MEQ/L (98-107); CREATININE FOR GFR 1.19 MG/DL (0.70-1.30); GLOMERULAR FILTRATION RATE > 60.0 (>56); GLUCOSE, FASTING 120 MG/DL (70-100); POTASSIUM SERUM 4.1 MEQ/L (3.5-5.1); SODIUM LEVEL 141 MEQ/L (136-145)
--- NOTE | 2019-12-20 10:26 | ECGEPIP ---
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
== END ==
LOC: M LAB 08:42
PROVIDERS: ATTEND Anesthesiology
DX: Z01.818 Encounter for other preprocedural examination (principal); E78.00 Pure hypercholesterolemia, unspecified; M10.9 Gout, unspecified; E03.9 Hypothyroidism, unspecified

== ENCOUNTER → 2019-12-21 | Outpatient (CLI) | payer OTHER | LOC: M LABSMTC 09:44 | PROVIDERS: ATTEND Anesthesiology | DX: Z01.812 Encounter for preprocedural laboratory examination (principal); Z11.59 Encounter for screening for other viral diseases ==

== ENCOUNTER 2019-12-24 06:09 | Day surgery (SDC) | payer OTHER ==
[~2019-12-24] VITALS: Ht 182.9 cm; Wt 159.8 kg
[~2019-12-24 06:09] MED LIST changes: +EPINEPHrine 1MG/ML INJ 30ML MD-VIAL As Ordered ONE; +LIDOCAINE 1% SDV 30ML VIAL As Ordered ONE; +LR 1,000 ML IV ONE; +ceFAZolin SOD 1 GM in D5W MINI-BAG PLUS 50 ML IV ONE; +ceFAZolin SOD 2 GM in IV 1 EA IV ONE
[2019-12-24] MEDS ORDERED: EPINEPHrine 1MG/ML INJ 30ML MD-VIAL As Ordered ONE (07:09)
[2019-12-24] MEDS ORDERED: fentaNYL 100 MCG/2 ML INJECTION (J3010) As Ordered ONE (07:20)
[2019-12-24] MEDS ORDERED: MIDAZOLAM INJ 2MG/2ML VIAL (J2250 PER 1MG) As Ordered ONE ×2 (07:20→07:59)
[2019-12-24] MEDS: MIDAZOLAM INJ 2MG/2ML VIAL (J2250 PER 1MG) IV SCH ×2 (07:25→07:28)
[2019-12-24] MEDS: fentaNYL 100 MCG/2 ML INJECTION (J3010) IV SCH ×2 (07:25→07:29)
[2019-12-24] MEDS ORDERED: dexameTHASONE 4 MG/ML 1ML VIAL (J1100 PER 1MG) As Ordered ONE (07:59)
[2019-12-24] MEDS ORDERED: ROCURONIUM BROMIDE 50 MG/5 ML VIAL As Ordered ONE ×2 (07:59→09:31)
[2019-12-24] MEDS ORDERED: propofoL 200 MG/20 ML VIAL As Ordered ONE (07:59)
[2019-12-24] MEDS ORDERED: LIDOCAINE 2% 100MG/5ML SDV (FOR ANES.) As Ordered ONE (07:59)
[2019-12-24] MEDS ORDERED: ONDANSETRON 4MG/2ML VIAL As Ordered ONE (08:18)
[2019-12-24] MEDS ORDERED: ACETAMINOPHEN 1000MG 100ML IV BTL (OFIRMEV) (J0131 PER 10MG) As Ordered ONE (08:20)
[2019-12-24] MEDS ORDERED: SUGAMMADEX SODIUM 500 MG/5 ML VIAL (BRIDION) As Ordered ONE (08:37)
[2019-12-24] MEDS ORDERED: LR 1,000 ML IV SCH ×2 (10:45→11:00)
[2019-12-24] MEDS ORDERED: ONDANSETRON 4MG/2ML VIAL IV PRN (10:45)
[2019-12-24] MEDS ORDERED: fentaNYL 100 MCG/2 ML INJECTION (J3010) IV PRN (10:45)
[2019-12-24 12:55] VITALS: BP 156/71
[2019-12-24] MEDS ORDERED: PROPARACAINE 0.5% OPHTH SOL 15ML As Ordered ONE (13:10)
--- NOTE | 2019-12-27 11:01 | RO ---
DATE OF SURGERY: 12/24/2019 PREOPERATIVE DIAGNOSES: 1. Left rotator cuff tear. 2 Left shoulder impingement. 3. Left shoulder possible superior labral tear. POSTOPERATIVE DIAGNOSES: 1. Left shoulder rotator cuff tear. 2. Left shoulder partial tear long head biceps tendon. 3. Left shoulder impingement. PROCEDURE: 1. Left shoulder arthroscopic rotator cuff repair. 2. Left shoulder arthroscopic subacromial decompression including acromioplasty. 3. Left shoulder arthroscopic synovectomy, labral debridement and biceps tenotomy. SURGEON: Dr. Tom Alves ORDER FULFILLMENT SPECIALIST: BALBIR Lu ANESTHESIA: General with a preoperative block. IV FLUIDS: Lactated Ringer's. ESTIMATED BLOOD LOSS: 10 mL. IMPLANTS: Arthrex 4.75 mm PEEK SwiveLock anchor times four. CLOSURE: Nylon and Monocryl. DESCRIPTION OF PROCEDURE: Patient identified in the preoperative holding. The left shoulder marked by myself. He had an interscalene nerve block by anesthesia. He was brought the operating room, placed supine on a well-padded operating room (OR) table with a large beanbag. General anesthesia induced. Exam under anesthesia revealed 170 degrees of forward flexion, 90 of external rotation, no increased anterior or posterior translation. After induction of general anesthesia, the patient was placed into the right side down lateral decubitus position with an axillary roll and all bony prominences were well-padded. Bilateral Venodyne boots for deep venous thrombosis (DVT) prophylaxis. The left arm was placed into the Arthrex StaR sleeve decubitus traction hamlin with 10 pounds of traction. He was carefully secured to the OR table. He received appropriate IV antibiotics within 1 hour of incision. The left shoulder was then prepped and draped in the normal sterile fashion with Chloraprep. Prior to incision, a time-out was performed per hospital protocol. Saray Rincon was present for the entire procedure and participated in all essential portions of the procedure. This included patient positioning and draping, holding the arthroscope, holding retractors during the attempted biceps tenodesis, retrieving sutures arthroscopically and assisting with suture anchor placement, retrieval, wound closure, dressing and sling. The left shoulder was insufflated with lactated Ringer's. A standard posterior viewing portal made with an 11 blade. A 30 degree arthroscope was introduced into the joint. Diagnostic arthroscopy carried out revealing some fraying of the superior labrum and then some partial tearing at the biceps labral anchor primarily extending into the long head of the biceps. Subscapularis appeared pristine. There was low grade partial articular tearing of the anterior supraspinatus. Posterior rotator cuff was intact. There is grade 1 chondromalacia of the humeral head and glenoid. An anterior working portal was established with a rotator interval and on probing of the long head of the biceps there is some split tearing. A tenotomy was performed with a biter. A shaver was used to debride the tendon stump and debride some frayed superior labrum. Rotator interval was cleared out with a radiofrequency cautery. Patient preoperatively was felt to have a partial upper tear of the subscapularis based on MRI and exam. However, intraoperatively it appeared pristine and there was no lift off doing the posterior lever push maneuver. I then proceeded with an attempted open biceps tenodesis. An incision was made a #15 blade just lateral to the axilla. The patient weighed over 130 kg and had a very large shoulder which distorted the anatomy. Subcutaneous dissection down to the biceps fascia with Metzenbaum scissors. Then palpating the lower border of the pec major and the deltoid revealed poorly defined borders. A small rent was made in the fascia over what felt like the bicipital groove and blunt finger dissection down to the humerus. The arm jumped consistent with a nerve irritation. After repositioning retractors and repeat blunt palpation, not to blunt dissection, I felt that to perform a tenodesis was going to have an unacceptably high risk for nerve damage and therefore I left him with a tenotomy. The incision was irrigated and closed with #2-0 Vicryl and running Monocryl. At the end of the case, Steri-Strips were placed. The arthroscope was now placed in the subacromial space where there is extensive bursitis. Lateral working portal was established and a bursectomy performed with shaver and cautery. There was a large subacromial spur primarily adjacent to the acromioclavicular (AC) joint and a bur was used to perform an acromioplasty. There was an extremely high grade partial bursal tear essentially greater than 80% partial bursal tear. The tendon edges were debrided with the shaver back to healthy tissue. Radiofrequency cautery was used to complete the tear, less than 2 mm of intact tendon. So, once the tear was completed a ring curette was used to clear soft tissue of tuberosity. Arthroscope placed in the lateral portal to get a better view and this was a crescent shape tear. We then proceeded with an Arthrex SpeedBridge rotator cuff repair. I percutaneously placed two 4.75 mm PEEK SwiveLock anchors preloaded with tape. From anterior to posterior I passed the tape sutures with the Scorpion and then eyelet sutures, and then again taped sutures followed by eyelet sutures in the far posterior portion. The arthroscopic knot pusher was then used to tie down the eyelet sutures using alternating half-inch technique so this set the central portion of the tear in the far posterior portion of the tear. One limb from each medial row of suture was brought out through an anterolateral cannula .75 moist PEEK SwiveLock anchor. The punch used to create a socket, anchor dock sutures tensioned. [place] inserted by hand with excellent fixation. These steps were repeated with the posterior sutures one from each medial row, and the same steps were repeated with excellent fixation. This completed the double row repair. There were no dog ears and the tendon was nicely compressed. Shoulder was gently rotated. There is no lift off or buckling. Portals were then closed with nylon suture. A bulky sterile dressing was applied. He was placed into the ARC 2 sling. He was then transferred to his stretcher. As the patient was being extubated, he did become slightly agitated and he did actively forward flex the left shoulder. His arm was easily then controlled and it was felt that this was felt very low risk for reinjury of the repair. He was then transferred to the postanesthesia care unit (PACU) in stable condition. All counts correct times two. Complications none.
== END 2019-12-24 13:13 | disposition home or self-care (01) ==
LOC: M SDC 06:09
PROVIDERS: ATTEND Orthopaedic Surgery
DX: M75.102 Unspecified rotator cuff tear or rupture of left shoulder, not specified as traumatic (principal); M75.42 Impingement syndrome of left shoulder; I10 Essential (primary) hypertension; E03.9 Hypothyroidism, unspecified; E78.49 Other hyperlipidemia; G47.33 Obstructive sleep apnea (adult) (pediatric); F41.9 Anxiety disorder, unspecified; M10.9 Gout, unspecified; K21.9 Gastro-esophageal reflux disease without esophagitis; Z79.899 Other long term (current) drug therapy; F17.220 Nicotine dependence, chewing tobacco, uncomplicated; Z91.013 Allergy to seafood
CPT/HCPCS: 23430; 29823; 29826; 29827; 64415; C1713; J0131; J0690; J1100; J2250; J2405

== ENCOUNTER → 2020-01-01 | Outpatient (REF) | payer OTHER ==
[~2020-01-01] MED LIST changes: -EPINEPHrine 1MG/ML INJ 30ML MD-VIAL As Ordered ONE; -LIDOCAINE 1% SDV 30ML VIAL As Ordered ONE; -LR 1,000 ML IV ONE; -ceFAZolin SOD 1 GM in D5W MINI-BAG PLUS 50 ML IV ONE; -ceFAZolin SOD 2 GM in IV 1 EA IV ONE
== END ==
LOC: M LAB REF 16:23
PROVIDERS: ATTEND Physician Assistant
DX: L28.2 Other prurigo (principal)

== ENCOUNTER → 2020-05-23 | Outpatient (CLI) | payer OTHER ==
[~2020-05-23] MED LIST changes: -AMLO10TA5 PO; +AMLO1TAB25 PO; -ASPI81TA85 PO; +ASPI81TA86 PO; +MAPA500C PO
== END ==
LOC: M LABSMTC 09:50
PROVIDERS: ATTEND Anesthesiology
DX: Z01.812 Encounter for preprocedural laboratory examination (principal); Z20.828 Contact with and (suspected) exposure to other viral communicable diseases
CPT/HCPCS: C9803; U0003

== ENCOUNTER 2020-05-28 06:11 | Day surgery (SDC) | payer OTHER ==
[~2020-05-28] VITALS: Ht 182.9 cm; Wt 164.2 kg
[~2020-05-28 06:11] MED LIST changes: +LR 1,000 ML IV ONE; +ceFAZolin SOD 1 GM in D5W MINI-BAG PLUS 50 ML IV ONE; +ceFAZolin SOD 2 GM in IV 1 EA IV ONE
[2020-05-28] MEDS ORDERED: dexameTHASONE 10MG/1ML VIAL PRES.FREE (J1100 PER 1MG) ONE (06:12)
[2020-05-28] MEDS ORDERED: EPINEPHrine INJ 1 MG/ML 1ML AMP ONE (06:12)
[2020-05-28] MEDS ORDERED: LIDOCAINE 1% MDV 20ML VIAL ONE (06:12)
[2020-05-28] MEDS ORDERED: ROPIvacaine 0.5% 30ML INJECTION (J2795 PER 1MG) ONE (06:12)
[2020-05-28] MEDS ORDERED: fentaNYL 100 MCG/2 ML INJECTION (J3010) As Ordered ONE ×2 (06:43→06:52)
[2020-05-28] MEDS ORDERED: MIDAZOLAM INJ 2MG/2ML VIAL (J2250 PER 1MG) As Ordered ONE ×2 (06:43→06:52)
[2020-05-28] MEDS ORDERED: ROCURONIUM BROMIDE 50 MG/5 ML VIAL As Ordered ONE ×2 (06:46→08:35)
[2020-05-28] MEDS ORDERED: LIDOCAINE 2% 100MG/5ML SDV (FOR ANES.) As Ordered ONE (06:47)
[2020-05-28] MEDS: fentaNYL 100 MCG/2 ML INJECTION (J3010) IV SCH ×2 (07:15→07:18)
[2020-05-28] MEDS ORDERED: EPINEPHrine 1MG/ML INJ 30ML MD-VIAL As Ordered ONE (07:17)
[2020-05-28] MEDS ORDERED: LIDOCAINE 1% SDV 30ML VIAL As Ordered ONE (07:18)
[2020-05-28] MEDS ORDERED: MIDAZOLAM INJ 2MG/2ML VIAL (J2250 PER 1MG) IV ONE (08:15)
[2020-05-28] MEDS ORDERED: ePHEDrine SULFATE 25 MG/5 ML(5MG/ML) SYRINGE As Ordered ONE (08:48)
[2020-05-28] MEDS ORDERED: PHENYLephrine HCL 500 MCG/5 ML (100MCG/ML) SYRINGE (J2370) As Ordered ONE (08:48)
[2020-05-28] MEDS ORDERED: METOCLOPRAMIDE INJ 10MG/2ML VIAL (J2765 PER 1) As Ordered ONE (08:55)
[2020-05-28] MEDS ORDERED: ONDANSETRON 4MG/2ML VIAL As Ordered ONE (08:57)
[2020-05-28] MEDS ORDERED: SUGAMMADEX SODIUM 500 MG/5 ML VIAL (BRIDION) As Ordered ONE (08:57)
[2020-05-28] MEDS ORDERED: SUCCINYLCHOLINE 100 MG/5 ML SYRINGE (J0330) As Ordered ONE (09:00)
[2020-05-28] MEDS ORDERED: LR 1,000 ML IV SCH ×2 (09:45)
[2020-05-28] MEDS ORDERED: fentaNYL 100 MCG/2 ML INJECTION (J3010) IV PRN (09:45)
[2020-05-28] MEDS ORDERED: ONDANSETRON 4MG/2ML VIAL IV PRN (09:45)
[2020-05-28] MEDS ORDERED: PERCOCET 5MG/325MG TAB PO PRN (09:45)
[2020-05-28 11:00] VITALS: BP 174/80
--- NOTE | 2020-05-29 08:42 | ECGEPIP ---
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 No change from 12/20/19. Electronically Signed on 05-29-2020 8:42:13 EDT by Nathan Hernandez
--- NOTE | 2020-05-29 10:19 | RO ---
DATE OF OPERATION: 05/28/2020 PREOPERATIVE DIAGNOSIS: 1. Left shoulder arthrofibrosis, status post rotator cuff tear. 2. Left shoulder possible rotator cuff re-tear. POSTOPERATIVE DIAGNOSIS: 1. Left shoulder arthrofibrosis, status post rotator cuff repair. 2. Left shoulder healed rotator cuff repair. 3. Left shoulder chondromalacia. PROCEDURE: 1. Left shoulder manipulation under anesthesia. 2. Left shoulder arthroscopic lysis of adhesions. 3. Left shoulder chondroplasty. SURGEON: Tom Alves MD POWER REACTOR SUPERVISOR: Madhu Young MD SECOND PHOTO STYLIST: BALBIR Larose ANESTHESIA: General, preoperative nerve block. IV FLUIDS: Lactated Ringers ESTIMATED BLOOD LOSS: 10 ml IMPLANTS: None. CLOSURE: Nylon. DESCRIPTION OF OPERATIVE PROCEDURE: The patient was identified in the preoperative holding area and the left shoulder was marked. He had an interscalene nerve block by anesthesia. He was brought to the operating room and placed supine on a well-padded OR table with a large beanbag. General anesthesia induced. Bilateral SCDs for deep venous thrombosis (DVT) prophylaxis. He received 3 gm of IV cefazolin for antibiotic prophylaxis within one hour of incision. Time-out was then performed per hospital protocol. Dr. Young was present for the manipulation under anesthesia. On my examination, he had a 120 degrees of forward flexion and 10 degrees of external rotation with his arm at his side, 0 degrees of external rotation with his shoulder at 90. I then applied a steady forward flexion and multiple pops were felt and heard and I was able to get the patient to 160 degrees of forward flexion. Dr. Young then took over the manipulation and he applied further forward flexion force. We were able to get him to 180 degrees of forward flexion. The patients arm was then brought from a fully forward flexed position into an external rotation with the shoulder at 90/90 and then the arm was adducted to the side, multiple pops were also felt. We also performed some adduction and abduction. These steps were repeated and we were able to get further external rotation with the arm at the side. So, following this manipulation, we were able to get the patient 180 degrees of forward flexion, 90 degrees of external rotation of the shoulder at 90 and 80 degrees of external rotation with the shoulder at his side. Internal rotation at 70 degrees. The patient was then placed onto the right side down lateral decubitus position with an axillary roll and all bony prominences were well padded. The left arm was placed into the Arthrex STaR sleeve with lateral decubitus traction hamlin with 12 pounds of traction. The left shoulder was prepped and draped in the normal sterile fashion with ChloraPrep. No repeat time-out indicated as I had not left the room. Following prep and drape, I percutaneously located the posterior viewing portal of spinal needle. Incision made with an 11 blade. 30 degree arthroscope was introduced into the joint and a diagnostic arthroscopy carried out. Our only issue was that the arthroscopy pictures were not saving and we called the IT Department, they were unable to fix this unfortunately. So, he had grade 1 chondromalacia in the humeral head and glenoid, diffuse end flaps or articular cartilage, no moderate or high grade areas. There is some tearing of the anterior inferior labrum, but no instability. The inferior capsule had been torn as expected from the manipulation. There is also tearing in the rotator interval as expected. The supraspinatus and infraspinatus were carefully inspected and the repair was intact. There were no loose sutures. The tendon was nicely approximated to the greater tuberosity and so from the articular standpoint, there was zero re-tearing. A portal was then established through the rotator interval and shaver and cautery used to clear that out. The meniscal bitter was used to release the capsule down through all the middle of the humeral ligament. Subscapularis was exposed and there was no tearing. Cautery was then used to expose the coracoid. Although it was tight, I did not perform an acromioplasty since I did not want to create extra bleeding, which would increase the chance of recurring external rotation stiffness. The arthroscope was now placed in the subacromial space and there was extensive scar tissue formation. From the bursal side, there was no tearing of his rotator cuff. A lateral working port was established and I performed a lysis of adhesions. I was able to internally and externally rotate the arm. The rotator cuff moved nicely as a unit. No loose sutures were visible. There was no buckling or telescoping of the tendon whatsoever. A switching stick was used to palpate the bursal surface of the rotator cuff and there was absolutely no tearing. This was great news for the patient. So, the shoulder wound was irrigated and drained. Portals closed with nylon suture. Bulky sterile dressing applied. He was placed into the shoulder immobilizer portion of his R2 sling and extubated and transferred to the PACU in stable condition. Complications none. DISPOSITION: So, the patient will have to start physical therapy Monday or Monday of next week. He will be in therapy three times a week the first month and then twice a week. He is to start pendulums and range of motion for forward flexion and external rotation starting postop day 1. MTDD
== END 2020-05-28 11:15 | disposition home or self-care (01) ==
LOC: M SDC 06:11
PROVIDERS: ATTEND Orthopaedic Surgery
DX: M24.612 Ankylosis, left shoulder (principal); M94.212 Chondromalacia, left shoulder; I10 Essential (primary) hypertension; G47.30 Sleep apnea, unspecified; E78.00 Pure hypercholesterolemia, unspecified; K21.9 Gastro-esophageal reflux disease without esophagitis; Z91.013 Allergy to seafood; M10.9 Gout, unspecified; E03.9 Hypothyroidism, unspecified; F41.9 Anxiety disorder, unspecified; Z79.82 Long term (current) use of aspirin; Z79.899 Other long term (current) drug therapy
CPT/HCPCS: 29823; 29825; 93005; J0171; J0330; J0690; J1100; J2250; J2370; J2405; J2765; J2795; J3010

== ENCOUNTER → 2020-12-01 | Outpatient (REF) ==
[~2020-12-01] MED LIST changes: -LR 1,000 ML IV ONE; -ceFAZolin SOD 1 GM in D5W MINI-BAG PLUS 50 ML IV ONE; -ceFAZolin SOD 2 GM in IV 1 EA IV ONE
--- NOTE | 2020-12-01 14:54 | REP ---
INDICATION: DDD- [facility]WARD GROUP ORDER. COMPARISON: None. TECHNIQUE: Three views of the left shoulder. FINDINGS: The left glenohumeral and acromioclavicular joints are normally aligned. There is mild osteoarthritic spurring at the AC joint and along the inferior margin of the glenoid consistent with osteoarthritis. Periarticular soft tissues are unremarkable. No erosive changes seen. IMPRESSION: Mild AC joint and glenohumeral joint osteoarthritic spurring. <Electronically signed by Eliazar Martins > 12/01/20 0537
== END ==
LOC: M RAD 09:12
PROVIDERS: ATTEND Internal Medicine
DX: M19.012 Primary osteoarthritis, left shoulder (principal); M25.712 Osteophyte, left shoulder

== ENCOUNTER → 2021-03-10 | Outpatient (CLI) | payer OTHER ==
[~2021-03-10] MED LIST changes: +ECOT81TA5 PO; +PANT40TA29
== END ==
LOC: M LABSMTC 14:03
PROVIDERS: ATTEND Anesthesiology
DX: Z01.812 Encounter for preprocedural laboratory examination (principal); Z20.822 Contact with and (suspected) exposure to COVID-19

== ENCOUNTER 2021-03-15 09:09 | Day surgery (SDC) | payer BC, OTHER ==
[~2021-03-15] VITALS: Ht 182.9 cm; Wt 152.9 kg
[~2021-03-15 09:09] MED LIST changes: +NS 1,000 ML IV ONE
[2021-03-15] MEDS ORDERED: LIDOCAINE 2% 100MG/5ML SDV (FOR ANES.) As Ordered ONE (09:14)
[2021-03-15] MEDS ORDERED: propofoL 200 MG/20 ML VIAL As Ordered ONE (09:14)
--- NOTE | 2021-03-15 11:02 | ROOR ---
Patient Name: Olayinka Falcon Procedure Date: 03/15/2021 10:24 AM Date of : 1970 Age: 50 Room: [facility] Gender: Male Note Status: Finalized Procedure: Colonoscopy Indications: Screening for colorectal malignant neoplasm Providers: Duane Rodas MD Referring MD: BALBIR KAYE Requesting Provider: Medicines: Monitored Anesthesia Care Complications: No immediate complications. Procedure: Pre-Anesthesia Assessment: - Prior to the procedure, a History and Physical was performed, and patient medications and allergies were reviewed. The patient is competent. The risks and benefits of the procedure and the sedation options and risks were discussed with the patient. All questions were answered and informed consent was obtained. Patient identification and proposed procedure were verified by the physician, the nurse and the anesthesiologist in the pre-procedure area. Mental Status Examination: alert and oriented. Airway Examination: normal oropharyngeal airway and neck mobility. Respiratory Examination: clear to auscultation. CV Examination: normal. Prophylactic Antibiotics: The patient does not require prophylactic antibiotics. Prior Anticoagulants: The patient has taken no previous anticoagulant or antiplatelet agents. ASA Grade Assessment: II - A patient with mild systemic disease. After reviewing the risks and benefits, the patient was deemed in satisfactory condition to undergo the procedure. The anesthesia plan was to use monitored anesthesia care (MAC). Immediately prior to administration of medications, the patient was re-assessed for adequacy to receive sedatives. The heart rate, respiratory rate, oxygen saturations, blood pressure, adequacy of pulmonary ventilation, and response to care were monitored throughout the procedure. The physical status of the patient was re-assessed after the procedure. The Colonoscope was introduced through the anus and advanced to the terminal ileum, with identification of the appendiceal orifice and IC valve. The colonoscopy was performed without difficulty. The patient tolerated the procedure well. The quality of the bowel preparation was good. The ileocecal valve, appendiceal orifice, and rectum were photographed. Scope insertion time was 2 minutes. Scope withdrawal time was 9 minutes. The total duration of the procedure was 12 minutes. Findings: The perianal and digital rectal examinations were normal. The terminal ileum appeared normal. Three sessile polyps were found in the recto-sigmoid colon, ascending colon and cecum. The polyps were 5 to 8 mm in size. These polyps were removed with a cold snare. Resection and retrieval were complete. Verification of patient identification for the specimen was done by the physician and nurse using the patient's name, date and medical record number. Estimated blood loss was minimal. A few medium-mouthed diverticula were found from sigmoid to descending colon. There was no evidence of diverticular bleeding. Non-bleeding external and internal hemorrhoids were found during retroflexion. The hemorrhoids were medium-sized. Impression: - The examined portion of the ileum was normal. - Three 5 to 8 mm polyps at the recto-sigmoid colon, in the ascending colon and in the cecum, removed with a cold snare. Resected and retrieved. - Mild diverticulosis from sigmoid to descending colon. There was no evidence of diverticular bleeding. - Non-bleeding external and internal hemorrhoids. Recommendation: - Patient has a contact number available for emergencies. The signs and symptoms of potential delayed complications were discussed with the patient. Return to normal activities tomorrow. Written discharge instructions were provided to the patient. - High fiber diet. - Continue present medications. - Await pathology results. - Repeat colonoscopy in 5 years for surveillance based on pathology results. - Telephone GI clinic for pathology results in 2 weeks. - Return to primary care physician. Procedure Code(s): --- Professional --- 16840, Colonoscopy, flexible; with removal of tumor(s), polyp(s), or other lesion(s) by snare technique Diagnosis Code(s): --- Professional --- Z12.11, Encounter for screening for malignant neoplasm of colon K64.8, Other hemorrhoids K63.5, Polyp of colon K57.30, Diverticulosis of large intestine without perforation or abscess without bleeding CPT copyright 2019 [employer]. All rights reserved. The codes documented in this report are preliminary and upon ore trimmer review may be revised to meet current compliance requirements. Duane Rodas MD Duane Rodas MD 03/15/2021 11:02:25 AM Electronically signed by Duane Rodas MD Number of Addenda: 0 Note Initiated On: 03/15/2021 10:24 AM Estimated Blood Loss: Estimated blood loss was minimal.
[2021-03-15 11:27] VITALS: BP 132/83
== END 2021-03-15 11:27 | disposition home or self-care (01) ==
LOC: M OPP 09:09
PROVIDERS: ATTEND Internal Medicine Gastroenterology
DX: Z12.11 Encounter for screening for malignant neoplasm of colon (principal); D12.6 Benign neoplasm of colon, unspecified; K57.30 Diverticulosis of large intestine without perforation or abscess without bleeding; K64.8 Other hemorrhoids; Z79.82 Long term (current) use of aspirin; Z79.899 Other long term (current) drug therapy; Z91.013 Allergy to seafood; F17.220 Nicotine dependence, chewing tobacco, uncomplicated

== ENCOUNTER → 2021-07-21 | Outpatient (CLI) | payer BC, OTHER ==
[~2021-07-21] MED LIST changes: -NS 1,000 ML IV ONE
--- NOTE | 2021-07-21 14:17 | REP ---
INDICATION: HEEL PAIN. COMPARISON: None. FINDINGS: The joint spaces are symmetric and relatively well maintained. There is mild asymmetric joint space narrowing involving the 1st metatarsal phalangeal joint. There is no evidence of acute fracture or destructive osseous lesion. There is a plantar calcaneal heel spur with adjacent soft tissue calcifications. IMPRESSION: Chronic changes as described above. <Electronically signed by Andres Gillette > 07/21/21 [id number]
== END ==
LOC: M WUC 13:01
PROVIDERS: ATTEND Physician Assistant
DX: M77.32 Calcaneal spur, left foot (principal); M79.672 Pain in left foot

== ENCOUNTER → 2022-08-08 | Outpatient (CLI) | payer BC ==
[~2022-08-08] MED LIST changes: -TRIA37.53 PO; +TRIA37.577 PO
[2022-08-08 14:52] LABS: BASO # 0.1 10^3/uL (0.0-0.2); BASO % 0.7 % (0.0-1.0); EOS # 0.3 10^3/uL (0.0-0.5); EOS % 2.4 % (0.0-3.0); HEMOGLOBIN 13.8 g/dl (13.5-17.5); LYMPH # 2.4 10^3/uL (1.5-5.0); MEAN CORPUSCULAR HEMOGLOBIN 28.6 pg (27.0-33.0); MEAN CORPUSCULAR HGB CONC 33.7 g/dl (32.0-36.5); MEAN CORPUSCULAR VOLUME 84.9 fl (80.0-96.0); MONO % 9.4 % (2.0-8.0); NEUTROPHILS # 6.7 10^3/uL (1.5-8.5); NEUTROPHILS % 64.1 % (36.0-66.0); PLATELET COUNT, AUTOMATED 342 10^3/uL (150-450); RED BLOOD COUNT 4.83 10^6/uL (4.30-6.10); WHITE BLOOD COUNT 10.4 10^3/uL (4.0-10.0)
[2022-08-08 15:28] LABS: ALBUMIN 3.5 G/DL (3.2-5.2); ALKALINE PHOSPHATASE 116 U/L (46-116); ALT/SGPT 29 U/L (7.0-40); AST/SGOT 21 U/L (<34); BILIRUBIN,TOTAL 0.4 MG/DL (0.3-1.2); BLOOD UREA NITROGEN 11 MG/DL (9-23); CALCIUM LEVEL 9.6 MG/DL (8.5-10.1); CARBON DIOXIDE LEVEL 30 MMOL/L (20-31); CHLORIDE LEVEL 104 MMOL/L (98-107); CHOLESTEROL LEVEL 155 MG/DL (<200); CHOLESTEROL RISK RATIO 4.02 (<5); CREATININE FOR GFR 1.04 MG/DL (0.70-1.30); GLOMERULAR FILTRATION RATE > 60.0 (>56); GLUCOSE, FASTING 94 MG/DL (60-100); HDL CHOLESTEROL 38.5 MG/DL (>40); LDL CHOLESTEROL 88.5 MG/DL (<100); NON-HDL-C 117 MG/DL; POTASSIUM SERUM 4.5 MMOL/L (3.5-5.1); SODIUM LEVEL 141 MMOL/L (136-145); TOTAL PROTEIN 6.7 G/DL (5.7-8.2); TRIGLYCERIDES LEVEL 140 MG/DL (<150)
== END ==
LOC: M PLALAB 11:35
PROVIDERS: ATTEND Physician Assistant
DX: E78.5 Hyperlipidemia, unspecified (principal); I10 Essential (primary) hypertension

== ENCOUNTER → 2022-09-15 | Outpatient (CLI) | payer BC | LOC: M RAD 07:04 | PROVIDERS: ATTEND Physician Assistant | DX: K76.0 Fatty (change of) liver, not elsewhere classified (principal); K80.20 Calculus of gallbladder without cholecystitis without obstruction; R19.8 Other specified symptoms and signs involving the digestive system and abdomen ==

== ENCOUNTER → 2022-10-26 | Outpatient (CLI) | payer BC | LOC: M LABSMTC 07:37 | PROVIDERS: ATTEND Anesthesiology | DX: Z01.812 Encounter for preprocedural laboratory examination (principal) ==

== ENCOUNTER 2022-10-31 09:25 | Day surgery (SDC) | payer BC ==
[~2022-10-31] VITALS: Ht 182.9 cm; Wt 157.4 kg
[2022-10-31] MEDS ORDERED: fentaNYL 100 MCG/2 ML INJECTION As Ordered ONE (12:52)
[2022-10-31] MEDS ORDERED: LIDOCAINE 2% 100MG/5ML SDV (FOR ANES.) As Ordered ONE (12:52)
[2022-10-31] MEDS ORDERED: ONDANSETRON 4MG 2ML VIAL As Ordered ONE (12:52)
[2022-10-31] MEDS ORDERED: ROCURONIUM BROMIDE 50MG/5ML VIAL As Ordered ONE (12:52)
[2022-10-31] MEDS ORDERED: propofoL 200 MG/20 ML VIAL As Ordered ONE (12:52)
[2022-10-31] MEDS ORDERED: MIDAZOLAM INJ 2MG/2ML VIAL As Ordered ONE (12:52)
[2022-10-31] MEDS ORDERED: BUPIVACAINE/EPIN 0.25% 30ML VIAL As Ordered ONE (13:59)
[2022-10-31] MEDS ORDERED: ACETAMINOPHEN 1000MG 100ML IV BAG As Ordered ONE (14:08)
[2022-10-31] MEDS ORDERED: SUGAMMADEX SODIUM 500 MG/5 ML VIAL (BRIDION) As Ordered ONE (14:11)
[2022-10-31] MEDS ORDERED: KETOROLAC 60MG 2ML VIAL As Ordered ONE (14:11)
[2022-10-31] MEDS ORDERED: GLYCOPYRROLATE INJ 0.2 MG/ML 2 ML VIAL As Ordered ONE (14:13)
[2022-10-31] MEDS ORDERED: LR 1,000 ML IV SCH (15:00)
[2022-10-31] MEDS ORDERED: MORPHINE 2 MG/ML 1ML VIAL IV PRN (15:00)
[2022-10-31] MEDS ORDERED: MEPERIDINE 25 MG/ML 1ML VIAL IV PRN (15:00)
[2022-10-31] MEDS ORDERED: oxyCODONE 5MG TAB PO PRN (15:00)
[2022-10-31] MEDS ORDERED: ONDANSETRON 4MG 2ML VIAL IV PRN (15:00)
[2022-10-31] MEDS ORDERED: fentaNYL 100 MCG/2 ML INJECTION IV PRN (15:00)
[2022-10-31] MEDS ORDERED: METOCLOPRAMIDE INJ 10MG/2ML VIAL IV PRN (15:00)
[2022-10-31] MEDS ORDERED: NORCO, ANEXSIA 5/325MG TABLET (HYDROcodone/ACETAMINOPHEN) PO PRN (15:45)
[2022-10-31 16:00] VITALS: BP 152/79
== END 2022-10-31 16:10 | disposition home or self-care (01) ==
LOC: M SDC 09:25
PROVIDERS: ATTEND Surgery
DX: K80.10 Calculus of gallbladder with chronic cholecystitis without obstruction (principal); I10 Essential (primary) hypertension; E78.5 Hyperlipidemia, unspecified; M10.9 Gout, unspecified; E03.9 Hypothyroidism, unspecified; K21.9 Gastro-esophageal reflux disease without esophagitis; F41.9 Anxiety disorder, unspecified; G47.33 Obstructive sleep apnea (adult) (pediatric); Z79.899 Other long term (current) drug therapy; Z91.013 Allergy to seafood
CPT/HCPCS: 47562; 88304; J0131; J1100; J1885; J2250; J2405; J3010; S0020; S2900

== ENCOUNTER → 2023-03-27 | Outpatient (CLI) | payer BC ==
[2023-03-27 13:58] LABS: APPEARANCE, URINE CLEAR (CLEAR); BACTERIA, URINE AUTO NEGATIVE (NEGATIVE); BILIRUBIN, URINE AUTO NEGATIVE (NEGATIVE); BLOOD, URINE BLOOD NEGATIVE (NEGATIVE); COLOR, URINE YELLOW (YELLOW); GLUCOSE, URINE (UA) AUTO NEGATIVE (NEGATIVE); KETONE, URINE AUTO NEGATIVE (NEGATIVE); LEUKOCYTE ESTERASE, URINE AUTO NEGATIVE (NEGATIVE); MUCUS, URINE SMALL (NEGATIVE); NITRITE, URINE AUTO NEGATIVE (NEGATIVE); PROTEIN, URINE AUTO NEGATIVE (NEGATIVE); RBC, URINE AUTO 1 /HPF (0-3); SPECIFIC GRAVITY URINE AUTO 1.011 (1.002-1.035); SQUAMOUS EPITHELIAL CELL UR AU 3 /HPF (0-6); WBC, URINE AUTO 2 /HPF (0-3)
[2023-03-27 14:00] LABS: HEMATOCRIT 43.2 % (42.0-52.0); HEMOGLOBIN 14.1 g/dl (13.5-17.5); MEAN CORPUSCULAR HGB CONC 32.6 g/dl (32.0-36.5); MEAN CORPUSCULAR VOLUME 85.9 fl (80.0-96.0); PLATELET COUNT, AUTOMATED 307 10^3/uL (150-450); RED BLOOD COUNT 5.03 10^6/uL (4.30-6.10); WHITE BLOOD COUNT 8.9 10^3/uL (4.0-10.0)
[2023-03-27 14:20] LABS: PROSTATIC SPECIFIC AG MONITOR 1.81 NG/ML (< 4.00)
[2023-03-27 14:22] LABS: ALBUMIN 3.6 G/DL (3.2-5.2); ALKALINE PHOSPHATASE 115 U/L (46-116); ALT/SGPT 33 U/L (7.0-40); AST/SGOT 19 U/L (<34); BILIRUBIN,TOTAL 0.5 MG/DL (0.3-1.2); BLOOD UREA NITROGEN 11 MG/DL (9-23); CALCIUM LEVEL 9.4 MG/DL (8.5-10.1); CARBON DIOXIDE LEVEL 28 MMOL/L (20-31); CHLORIDE LEVEL 104 MMOL/L (98-107); CHOLESTEROL LEVEL 156 MG/DL (<200); CHOLESTEROL RISK RATIO 4.13 (<5); CREATININE FOR GFR 0.97 MG/DL (0.70-1.30); GLOMERULAR FILTRATION RATE > 60.0 (>56); GLUCOSE, FASTING 100 MG/DL (60-100); HDL CHOLESTEROL 37.7 MG/DL (>40); LDL CHOLESTEROL 87.7 MG/DL (<100); NON-HDL-C 118.3 MG/DL; SODIUM LEVEL 139 MMOL/L (136-145); TOTAL PROTEIN 7.1 G/DL (5.7-8.2); TRIGLYCERIDES LEVEL 153 MG/DL (<150)
[2023-03-27 14:24] LABS: THYROID STIMULATING HORMONE 1.235 uIU/ML (0.55-4.78)
== END ==
LOC: M PLALAB 11:22
PROVIDERS: ATTEND Physician Assistant
DX: I10 Essential (primary) hypertension (principal); E03.9 Hypothyroidism, unspecified; E78.5 Hyperlipidemia, unspecified; R35.1 Nocturia

== ENCOUNTER → 2023-10-16 | Outpatient (CLI) | payer BC ==
[2023-10-16 11:12] LABS: HEMATOCRIT 43.5 % (42.0-52.0); HEMOGLOBIN 14.2 g/dl (13.5-17.5); MEAN CORPUSCULAR HEMOGLOBIN 28.2 pg (27.0-33.0); MEAN CORPUSCULAR HGB CONC 32.6 g/dl (32.0-36.5); MEAN CORPUSCULAR VOLUME 86.5 fl (80.0-96.0); PLATELET COUNT, AUTOMATED 294 10^3/uL (150-450); RED BLOOD COUNT 5.03 10^6/uL (4.30-6.10); WHITE BLOOD COUNT 8.8 10^3/uL (4.0-10.0)
[2023-10-16 11:35] LABS: PSA SCREENING 1.58 NG/ML (< 4.00)
[2023-10-16 11:41] LABS: ALBUMIN 3.5 G/DL (3.2-5.2); ALKALINE PHOSPHATASE 119 U/L (46-116); ALT/SGPT 39 U/L (7.0-40); AST/SGOT 21 U/L (<34); BILIRUBIN,TOTAL 0.4 MG/DL (0.3-1.2); BLOOD UREA NITROGEN 14 MG/DL (9-23); CALCIUM LEVEL 9.6 MG/DL (8.5-10.1); CARBON DIOXIDE LEVEL 30 MMOL/L (20-31); CHLORIDE LEVEL 104 MMOL/L (98-107); CHOLESTEROL LEVEL 153 MG/DL (<200); CHOLESTEROL RISK RATIO 3.94 (<5); CREATININE FOR GFR 0.98 MG/DL (0.70-1.30); GLOMERULAR FILTRATION RATE > 60.0 (>56); GLUCOSE, FASTING 100 MG/DL (60-100); HDL CHOLESTEROL 38.8 MG/DL (>40); NON-HDL-C 114.2 MG/DL; POTASSIUM SERUM 3.4 MMOL/L (3.5-5.1); SODIUM LEVEL 141 MMOL/L (136-145); TRIGLYCERIDES LEVEL 121 MG/DL (<150)
== END ==
LOC: M PLALAB 07:42
PROVIDERS: ATTEND Physician Assistant
DX: I10 Essential (primary) hypertension (principal); E78.5 Hyperlipidemia, unspecified; R35.1 Nocturia

== ENCOUNTER → 2023-12-22 | Outpatient (REF) | payer OTHER ==
[2023-12-22 13:47] LABS: APPEARANCE, URINE HAZY (CLEAR); BACTERIA, URINE AUTO NEGATIVE (NEGATIVE); BILIRUBIN, URINE AUTO NEGATIVE (NEGATIVE); BLOOD, URINE BLOOD 2+ (NEGATIVE); COLOR, URINE YELLOW (YELLOW); GLUCOSE, URINE (UA) AUTO NEGATIVE (NEGATIVE); KETONE, URINE AUTO NEGATIVE (NEGATIVE); LEUKOCYTE ESTERASE, URINE AUTO 2+ (NEGATIVE); MUCUS, URINE SMALL (NEGATIVE); NITRITE, URINE AUTO NEGATIVE (NEGATIVE); PROTEIN, URINE AUTO 1+ mg/dL (NEGATIVE); RBC, URINE AUTO 142 /HPF (0-3); SPECIFIC GRAVITY URINE AUTO 1.014 (1.002-1.035); SQUAMOUS EPITHELIAL CELL UR AU 0 /HPF (0-6); WBC, URINE AUTO TNTC /HPF (0-3)
== END ==
LOC: M LAB REF 12:35
PROVIDERS: ATTEND Physician Assistant
DX: N39.0 Urinary tract infection, site not specified (principal)

== ENCOUNTER 2024-04-24 20:40 | Emergency (ER) | payer BC, OTHER ==
[~2024-04-24] VITALS: Ht 182.9 cm; Wt 165.4 kg
[~2024-04-24 20:40] MED LIST changes: -BYST10TA2 PO; +BYST1TAB3 PO
[2024-04-24 21:23] LABS: HEMATOCRIT 41.6 % (42.0-52.0); HEMOGLOBIN 14.1 g/dl (13.5-17.5); RED BLOOD COUNT 4.95 10^6/uL (4.30-6.10); WHITE BLOOD COUNT 11.3 10^3/uL (4.0-10.0)
[2024-04-24 21:24] LABS: BASO # 0.1 10^3/uL (0.0-0.2); BASO % 0.7 % (0.0-1.0); EOS # 0.3 10^3/uL (0.0-0.5); EOS % 2.8 % (0.0-3.0); LYMPH # 2.7 10^3/uL (1.5-5.0); LYMPH % 24.1 % (24.0-44.0); MEAN CORPUSCULAR HEMOGLOBIN 28.5 pg (27.0-33.0); MEAN CORPUSCULAR HGB CONC 33.9 g/dl (32.0-36.5); MONO # 0.9 10^3/uL (0.0-0.8); MONO % 7.5 % (2.0-8.0); NEUTROPHILS # 7.3 10^3/uL (1.5-8.5); NEUTROPHILS % 64.5 % (36.0-66.0); PLATELET COUNT, AUTOMATED 338 10^3/uL (150-450)
[2024-04-24 21:49] LABS: ALBUMIN 3.7 G/DL (3.2-5.2); ALKALINE PHOSPHATASE 122 U/L (46-116); ALT/SGPT 37 U/L (7.0-40); AST/SGOT 25 U/L (<34); BILIRUBIN,DIRECT 0.1 MG/DL (<0.4); BILIRUBIN,TOTAL 0.4 MG/DL (0.3-1.2); BLOOD UREA NITROGEN 17 MG/DL (9-23); CALCIUM LEVEL 10.1 MG/DL (8.5-10.1); CARBON DIOXIDE LEVEL 29 MMOL/L (20-31); CHLORIDE LEVEL 108 MMOL/L (98-107); CREATININE FOR GFR 1.23 MG/DL (0.70-1.30); GLOMERULAR FILTRATION RATE > 60.0 (>56); GLUCOSE, FASTING 124 MG/DL (60-100); SODIUM LEVEL 142 MMOL/L (136-145); TOTAL PROTEIN 7.3 G/DL (5.7-8.2)
[2024-04-24 22:03] LABS: APPEARANCE, URINE CLEAR (CLEAR); BACTERIA, URINE AUTO NEGATIVE (NEGATIVE); BILIRUBIN, URINE AUTO NEGATIVE (NEGATIVE); BLOOD, URINE BLOOD 1+ (NEGATIVE); COLOR, URINE YELLOW (YELLOW); GLUCOSE, URINE (UA) AUTO NEGATIVE (NEGATIVE); KETONE, URINE AUTO NEGATIVE (NEGATIVE); LEUKOCYTE ESTERASE, URINE AUTO NEGATIVE (NEGATIVE); NITRITE, URINE AUTO NEGATIVE (NEGATIVE); PROTEIN, URINE AUTO NEGATIVE (NEGATIVE); RBC, URINE AUTO 6 /HPF (0-3); SPECIFIC GRAVITY URINE AUTO 1.017 (1.002-1.035); SQUAMOUS EPITHELIAL CELL UR AU 1 /HPF (0-6); UROBILINOGEN, URINE AUTO 0.2 mg/dL (0.0-2.0); WBC, URINE AUTO 0 /HPF (0-3)
[2024-04-25 04:54] VITALS: TEMP 97.9
[2024-04-25 06:58] VITALS: BP 115/65; O2SAT 98
== END 2024-04-25 06:59 | disposition home or self-care (01) ==
LOC: M ED 20:40
DX: I10 Essential (primary) hypertension (principal); F41.1 Generalized anxiety disorder; E03.9 Hypothyroidism, unspecified; F17.200 Nicotine dependence, unspecified, uncomplicated; Z91.013 Allergy to seafood; Z79.899 Other long term (current) drug therapy; Z79.82 Long term (current) use of aspirin; Z79.02 Long term (current) use of antithrombotics/antiplatelets

== ENCOUNTER → 2024-06-06 | Outpatient (CLI) | payer BC ==
[~2024-06-06] MED LIST changes: -MULT200T7 PO; +MULT200T9 PO
[2024-06-06 10:18] LABS: CHOLESTEROL RISK RATIO 4.53 (<5); HDL CHOLESTEROL 39.9 MG/DL (>40); LDL CHOLESTEROL 112.5 MG/DL (<100); NON-HDL-C 141.1 MG/DL
[2024-06-06 10:21] LABS: THYROID STIMULATING HORMONE 1.268 uIU/ML (0.55-4.78)
== END ==
LOC: M PLALAB 08:06
PROVIDERS: ATTEND Physician Assistant
DX: E78.5 Hyperlipidemia, unspecified (principal); E03.9 Hypothyroidism, unspecified; E55.9 Vitamin D deficiency, unspecified

== ENCOUNTER → 2025-02-24 | Outpatient (CLI) | payer BC ==
[2025-02-24 10:37] LABS: PLATELET COUNT, AUTOMATED 305 10^3/uL (150-450)
[2025-02-24 11:07] LABS: ALT/SGPT 33.0 U/L (7.0-40); AST/SGOT 25.0 U/L (<34); CALCIUM LEVEL 9.6 MG/DL (8.5-10.1); CARBON DIOXIDE LEVEL 29.0 MMOL/L (20-31); CHLORIDE LEVEL 103.0 MMOL/L (98-107); CHOLESTEROL LEVEL 159.0 MG/DL (<200); CHOLESTEROL RISK RATIO 4.21 (<5); CREATININE FOR GFR 1.12 MG/DL (0.70-1.30); GLOMERULAR FILTRATION RATE 77.1 (>56); LDL CHOLESTEROL 93.3 MG/DL (<100); NON-HDL-C 121.3 MG/DL; POTASSIUM SERUM 4.3 MMOL/L (3.5-5.1); SODIUM LEVEL 143.0 MMOL/L (136-145); TRIGLYCERIDES LEVEL 140.0 MG/DL (<150)
== END ==
LOC: M PLALAB 09:02
PROVIDERS: ATTEND Physician Assistant
DX: E78.5 Hyperlipidemia, unspecified (principal); I10 Essential (primary) hypertension; E03.9 Hypothyroidism, unspecified

== ENCOUNTER → 2025-02-24 | Outpatient (CLI) | payer BC | LOC: M PLAIMG 09:03 | PROVIDERS: ATTEND Neuromusculoskeletal Medicine, Sports Medicine | DX: S83.412A Sprain of medial collateral ligament of left knee, initial encounter (principal); W18.30XA Fall on same level, unspecified, initial encounter; Y92.009 Unspecified place in unspecified non-institutional (private) residence as the place of occurrence of the external cause ==

== ENCOUNTER 2025-03-07 16:50 | Emergency (ER) | payer BC ==
[~2025-03-07] VITALS: Ht 182.9 cm; Wt 165.9 kg
[~2025-03-07 16:50] MED LIST changes: -PANT40TA29; +PANT40TA29 PO
[2025-03-07] MEDS ORDERED: TETANUS/DIPHTH/ACEL. PERTUSSIS 0.5 ML SYR IM.IMMUN ONE (18:05)
[2025-03-07 18:08] LABS: VENOUS BASE EXCESS -0.2 (-2.0-2.0); VENOUS HCO3 24.3 MMOL/L (23.0-27.0); VENOUS O2 SATURATION 74.7 % (60.0-80.0); VENOUS PARTIAL PRESSURE CO2 39.6 mmHg (38.0-50.0); VENOUS PARTIAL PRESSURE O2 40.0 mmHg (30.0-50.0); VENOUS PH 7.406 UNITS (7.330-7.430); VENOUS STANDARD HCO3 23.7 MMOL/L; VENOUS TOTAL CO2 25.5 MMOL/L (24.0-28.0)
[2025-03-07 18:16] LABS: BASO # 0.1 10^3/uL (0.0-0.2); BASO % 0.4 % (0.0-1.0); EOS # 0.1 10^3/uL (0.0-0.5); EOS % 0.6 % (0.0-3.0); LYMPH # 1.8 10^3/uL (1.5-5.0); LYMPH % 10.9 % (24.0-44.0); MONO # 1.2 10^3/uL (0.0-0.8); MONO % 7.5 % (2.0-8.0); NEUTROPHILS # 13.0 10^3/uL (1.5-8.5); NEUTROPHILS % 80.1 % (36.0-66.0); PLATELET COUNT, AUTOMATED 268 10^3/uL (150-450)
[2025-03-07 18:34] LABS: CK-MB VALUE MASS 7.6 NG/ML (<3.6)
[2025-03-07 18:35] LABS: CALCIUM LEVEL 9.7 MG/DL (8.5-10.1); CARBON DIOXIDE LEVEL 27.0 MMOL/L (20-31); CHLORIDE LEVEL 105.0 MMOL/L (98-107); CPK CREATINE PHOSPHOKINASE 181.0 U/L (46-171); CREATININE FOR GFR 1.2 MG/DL (0.70-1.30); GLOMERULAR FILTRATION RATE 71.0 (>56); MAGNESIUM LEVEL 2.0 MG/DL (1.8-2.4); MB/CK RELATIVE INDEX 4.19 (< OR =4); POTASSIUM SERUM 3.7 MMOL/L (3.5-5.1); SODIUM LEVEL 143.0 MMOL/L (136-145)
[2025-03-07 18:38] LABS: FREE T4 1.32 NG/DL (0.89-1.76)
[2025-03-07] MEDS ORDERED: ISOVUE-370 76% 100 ML VIAL As Ordered ONE (18:42)
[2025-03-07] MEDS ORDERED: ASPIRIN 81 MG CHEWABLE TABLET PO ONE (18:45)
[2025-03-07 19:12] LABS: INR 1.11
[2025-03-07 19:25] LABS: CK-MB VALUE MASS 9.2 NG/ML (<3.6)
[2025-03-07 19:26] LABS: CPK CREATINE PHOSPHOKINASE 186.0 U/L (46-171); MB/CK RELATIVE INDEX 4.94 (< OR =4)
[2025-03-07] MEDS: HEPARIN SOD 5000 UNITS/ML 1 ML VIAL/SYRINGE IV ONE (19:43)
[2025-03-07 19:47] LABS: VENOUS BASE EXCESS -0.5 (-2.0-2.0); VENOUS HCO3 23.8 MMOL/L (23.0-27.0); VENOUS PARTIAL PRESSURE CO2 38.0 mmHg (38.0-50.0); VENOUS PARTIAL PRESSURE O2 44.4 mmHg (30.0-50.0); VENOUS PH 7.414 UNITS (7.330-7.430); VENOUS STANDARD HCO3 23.7 MMOL/L; VENOUS TOTAL CO2 24.9 MMOL/L (24.0-28.0)
[2025-03-07] MEDS: HEPARIN DRIP 25,000 UNITS in IV 1 EA IV SCH (19:47)
[2025-03-07 19:54] LABS: VENOUS O2 SATURATION 90.1 % (60.0-80.0)
[2025-03-07] MEDS ORDERED: EPIN0.3I11 IM (20:38)
[2025-03-07] MEDS ORDERED: BUSP15TA47 PO (20:38)
[2025-03-07] MEDS ORDERED: HOME MED LIST COMPLETE! XX SCH (20:40)
[2025-03-07 22:12] VITALS: BP 108/50; TEMP 98.1; O2SAT 94
[2025-03-10 13:21] LABS: CARDIOLIPIN IGA ANTIBODY 2.3 APL-U/mL (<20.0); CARDIOLIPIN IGG ANTIBODY < 2.0 GPL-U/mL (<20.0); CARDIOLIPIN IGM ANTIBODY < 2.0 MPL-U/mL (<20.0)
[2025-03-12 01:48] LABS: PROTEIN C FUNCTIONAL ACTIVITY 91 % normal (70-180); PROTEIN S FUNCTIONAL ACTIVITY 60 % normal (70-150)
[2025-03-12 02:37] LABS: ANTI THROMBIN 3 ANTIGEN IMMUNO 125 % normal (80-120); ANTI THROMBIN 3 FUNCT ACTIVITY 105 % normal (80-135)
== END 2025-03-07 22:16 | disposition short-term general hospital (02) ==
LOC: EDBD 16:50 → M ED 16:50
DX: I26.09 Other pulmonary embolism with acute cor pulmonale (principal); I50.810 Right heart failure, unspecified; I82.442 Acute embolism and thrombosis of left tibial vein; S01.511A Laceration without foreign body of lip, initial encounter; W01.198A Fall on same level from slipping, tripping and stumbling with subsequent striking against other object, initial encounter; R55 Syncope and collapse; N28.1 Cyst of kidney, acquired; R91.1 Solitary pulmonary nodule; E78.5 Hyperlipidemia, unspecified; I11.0 Hypertensive heart disease with heart failure; F41.1 Generalized anxiety disorder; Z91.013 Allergy to seafood; Z79.82 Long term (current) use of aspirin; Z79.899 Other long term (current) drug therapy; Z79.02 Long term (current) use of antithrombotics/antiplatelets; Y92.009 Unspecified place in unspecified non-institutional (private) residence as the place of occurrence of the external cause; Y93.89 Activity, other specified; Y99.9 Unspecified external cause status
CPT/HCPCS: 70450; 71045; 71275; 72125; 80047; 80048; 81240; 82550; 82553; 82803; 83735; 83880; 84311; 84439; 84443; 84484; 85025; 85300; 85301; 85303; 85305; 85610; 85730; 86147; 93005; 93041; 93970; 94760; 96365; 96366; 99285; Q9967

== ENCOUNTER → 2025-04-14 | Outpatient (CLI) | payer BC ==
[~2025-04-14] MED LIST changes: +BUSP15TA47 PO; +EPIN0.3I11 IM; -IBUP-1022 PO; +IBUP600T42 PO
[2025-04-14 14:47] LABS: CALCIUM LEVEL 9.4 MG/DL (8.5-10.1); CARBON DIOXIDE LEVEL 30.0 MMOL/L (20-31); CHLORIDE LEVEL 105.0 MMOL/L (98-107); CREATININE FOR GFR 1.07 MG/DL (0.70-1.30); GLOMERULAR FILTRATION RATE 81.4 (>56); POTASSIUM SERUM 4.0 MMOL/L (3.5-5.1); SODIUM LEVEL 142.0 MMOL/L (136-145)
== END ==
LOC: M PLALAB 08:39
PROVIDERS: ATTEND Urology
DX: R31.0 Gross hematuria (principal)

== ENCOUNTER → 2025-06-23 | Outpatient (CLI) | payer BC | LOC: M CARPUL 07:52 | PROVIDERS: ATTEND Internal Medicine Critical Care Medicine | DX: I26.99 Other pulmonary embolism without acute cor pulmonale (principal) ==